=== PATIENT | female | born 1940 | race Caucasian/White ===

== ENCOUNTER 2023-08-18 21:39 | Observation (INO) | payer MEDICARE, SELFPAY ==
--- NOTE | 2023-08-18 22:05 | CT_ITS ---
PROCEDURE INFORMATION: Exam: CT Head Without Contrast Exam date and time: 08/18/2023 10:41 PM Age: 82 years old Clinical indication: Altered mental status/memory loss; Additional info: Acute encephalopathy TECHNIQUE: Imaging protocol: Computed tomography of the head without contrast. Total images: 277 Radiation optimization: All CT scans at this facility use at least one of these dose optimization techniques: automated exposure control; mA and/or kV adjustment per patient size (includes targeted exams where dose is matched to clinical indication); or iterative reconstruction. COMPARISON: No relevant prior studies available. FINDINGS: Brain: No acute intracranial hemorrhage, midline shift, or mass. Mild cortical and cerebellar atrophy. Moderate confluent periventricular and subcortical white matter hypodensity compatible with remote small vessel ischemic change. Paul-white interface and basilar cisterns are preserved. Remote white matter infarct left subinsular cortex. Cerebral ventricles: Mild ventricular prominence compatible degree of central atrophy. Paranasal sinuses: Visualized sinuses are unremarkable. No fluid levels. Mastoid air cells: Visualized mastoid air cells are well aerated. Orbital cavities: Status post bilateral orbital lens replacement. Bones/joints: Osteopenia. Hyperostosis of the frontal calvarium. No skull fracture. Soft tissues: Unremarkable. Vasculature: Moderate to severe calcifications bilateral intracranial internal carotid arteries. IMPRESSION: 1. No acute intracranial process. 2. Moderate chronic intracranial findings.
--- NOTE | 2023-08-18 22:05 | XR_ITS ---
PROCEDURE INFORMATION: Exam: XR Chest Exam date and time: 08/18/2023 11:17 PM Age: 82 years old Clinical indication: Other: Encephalopathy TECHNIQUE: Imaging protocol: Radiologic exam of the chest. Views: 1 view. COMPARISON: No relevant prior studies available. FINDINGS: Lungs: Low lung volumes with elevated right hemidiaphragm and mild bibasilar atelectasis. Central pulmonary vascular enlargement. No consolidation. Pleural spaces: Normal. No pleural effusion. No pneumothorax. Heart/Mediastinum: Normal. No cardiomegaly. Vasculature: Tortuous atherosclerotic thoracic aorta. Bones/joints: Old left clavicle fracture. IMPRESSION: Low lung volumes with elevated right hemidiaphragm and mild bibasilar atelectasis. No consolidation.
[2023-08-18 22:06] VITALS: BP 148/79; PULSE 103; RESP 24; TEMP 38.1; O2SAT 92; BMI 42.9
[2023-08-18 22:10] LABS: Microscopic, Urine URINE MICROSCOPIC (MICROSCOPIC)
[2023-08-18 22:10] LABS: Coronavirus 19, PCR Not Detected (NotDetected); Influenza A, PCR Not Detected (NotDetected); Influenza B, PCR Not Detected (NotDetected)
--- NOTE | 2023-08-18 22:15 | ECG_ITS ---
APPROVED REPORT Exam: Resting ECG HR:100 bpm ECG Measurements Heart Rate 100 AXES OK 144 P 59 QRSd 98 QRS 47 QT 343 T 2 QTc 400 Critical Notification Critical Value: No Conclusion SINUS TACHYCARDIA LOW QRS VOLTAGE IN PRECORDIAL LEADS [QRS DEFLECTION < 1.0 mV IN CHEST LEADS] MINIMAL ST DEPRESSION [0.025+ mV ST DEPRESSION] ABNORMAL RHYTHM ECG Electronically signed by : LEI DUNAWAY, 08/19/2023 01:43:19
[2023-08-18 22:16] LABS: Basophils # 0.1 K/mm3 (0-0.2); Basophils % 0.7 % (0.1-2.0); Eosinophils % 0.2 % (0.1-12.0); Hematocrit 39.1 % (37.0-47.0); Hemoglobin 12.1 g/dL (12.2-16.2); Lymphocytes # 2.3 K/mm3 (0.7-4.5); Mean Corpuscular Hemoglobin 28.7 pg (27.0-31.2); Mean Corpuscular Volume 92.5 fl (81-99); Monocytes # 0.7 K/mm3 (0.1-1.0); Monocytes % 4.5 % (1.7-9.3); Neutrophils # 12.2 K/mm3 (1.8-7.8); Neutrophils % 79.6 % (37.0-80.0); Platelet Count 366 K/mm3 (142-424); Red Blood Count 4.23 M/mm3 (4.20-5.40); White Blood Count 15.3 K/mm3 (4.8-10.8)
[2023-08-18 22:17] LABS: Chloride 102 mmol/L (98-107)
--- NOTE | 2023-08-18 22:17 | PC.NURSE ---
Dr Francis notified of pt triggering for sepsis
[2023-08-18 22:18] LABS: Appearance,Urine CLEAR (Clear); Bilirubin,Urine Negative (Negative); Blood, Urine Negative (Negative); Color,Urine YELLOW (Yellow); Glucose,Urine (UA) Negative (Negative); Ketones,Urine Negative (Negative); Leukocyte Esterase,Urine Negative (Negative); Nitrate,Urine Negative (Negative); PH,Urine 5.5 (5.0-8.5); Protein,Urine TRACE (Negative); Specific Gravity, Urine 1.025 (1.005-1.030); Urobilinogen,Urine 0.2 EU/dl (0.2)
[2023-08-18 22:18] LABS: MANUAL DIFFERENTIAL MANUAL DIFFERENTIAL (MANUAL DIFF); Potassium 4.1 mmoL/L (3.5-5.1); Sodium 137 mmol/L (136-145)
[2023-08-18 22:20] LABS: Alanine Aminotransferase 42 U/L (12-78); Aspartate Amino Transferase 44 U/L (14-36); Blood Urea Nitrogen 16 mg/dl (7-17); Creatinine Clearance Estimated 38 mL/min (50-200); Estimated Glomerular Filt Rate 69 ml/min (>60); GFR (African American) 83 ML/MIN (>60)
[2023-08-18 22:21] VITALS: BP 121/68; PULSE 99; RESP 18; O2SAT 93
[2023-08-18 22:21] LABS: Albumin Level 3.7 g/dl (3.5-5.0); Albumin/Globulin Ratio 1.2 (1.1-1.8); Alkaline Phosphatase 81 U/L (38-126); Anion Gap 7.1 mEq/L (5-15); Bilirubin,Total 0.3 mg/dl (0.2-1.3); Calcium 9.2 mg/dl (8.4-10.2); Carbon Dioxide 32 mmol/L (22.0-30.0); Globulin 3.1 g/dL (1.3-3.2); Glucose 161 mg/dl (74-100); Magnesium 1.9 mg/dl (1.6-2.3); Total Protein,Serum 6.8 g/dl (6.3-8.2)
[2023-08-18] MEDS: CEFTRIAXONE 1 GM 1 GM in 0.9 % SODIUM CHLORIDE 50 ML IV (22:28)
--- NOTE | 2023-08-18 22:28 | PC.NURSE ---
requested records from [facility] from 08/17/23 visit
[2023-08-18] MEDS: ACETAMINOPHEN 1,000MG/100ML VIAL 1000 MG IV (22:29)
[2023-08-18 22:30] VITALS: BP 134/70; PULSE 96; O2SAT 95
--- NOTE | 2023-08-18 22:36 | ECG_ITS ---
APPROVED REPORT Exam: Resting ECG HR:99 bpm ECG Measurements Heart Rate 99 AXES RI 155 P 65 QRSd 93 QRS 64 QT 333 T 5 QTc 389 Critical Notification Critical Value: No Conclusion SINUS RHYTHM NORMAL ECG Electronically signed by : LEI DUNAWAY, 08/19/2023 01:46:47
[2023-08-18 22:37] LABS: Bacteria,Urine Trace /lpf; RBC,Urine Occasional #/hpf (0-3); Squamous Epithelial Cell,Urine Occasional #/hpf (0-5)
[2023-08-18 22:38] LABS: Troponin I < 0.01 ng/ml (0.00-0.034)
[2023-08-18] MEDS: LACTATED RINGERS 1000ML 1,640 ML 820 ML IV (22:40)
[2023-08-18 22:47] LABS: INR 1.43 (0.9-1.1); Prothrombin Time 15.1 seconds (10.1-12.5)
[2023-08-18 22:55] LABS: Lymphocytes % 24 % (10-50); Monocytes % 1 % (2-9); Neutrophils % 75 % (42-76); Total Cells Counted 100
[2023-08-18 22:57] LABS: Platelet Estimate Normal; RBC Morphology Normal
[2023-08-18 23:03] VITALS: BP 108/56; PULSE 90; RESP 18; O2SAT 94
--- NOTE | 2023-08-18 23:03 | CT_ITS ---
PROCEDURE INFORMATION: Exam: CT Abdomen And Pelvis With Contrast Exam date and time: 08/18/2023 11:17 PM Age: 82 years old Clinical indication: Abdominal pain; Generalized; Additional info: Previous uterine cancer status post removal TECHNIQUE: Imaging protocol: Computed tomography of the abdomen and pelvis with contrast. Radiation optimization: All CT scans at this facility use at least one of these dose optimization techniques: automated exposure control; mA and/or kV adjustment per patient size (includes targeted exams where dose is matched to clinical indication); or iterative reconstruction. Contrast material: ISOVUE; Contrast volume: 75 ml; Contrast route: IV; COMPARISON: CR XR CHEST PORTABLE 08/18/2023 11:17 PM FINDINGS: Lungs: Mild bibasilar atelectasis. Liver: Hepatic steatosis with hepatomegaly. No liver lesions. Gallbladder and bile ducts: Multiple small gallstones in the gallbladder. No biliary ductal dilatation. Pancreas: Significant fatty replacement of the pancreas. 2.0 cm cystic lesion in the pancreatic tail. Spleen: Small splenic remnant in the left upper quadrant. Adrenal glands: Normal. No mass. Kidneys and ureters: Normal. No hydronephrosis. Stomach and bowel: Unremarkable. No obstruction. No mucosal thickening. Appendix: No evidence of appendicitis. Intraperitoneal space: Central mesenteric fat stranding. No free fluid or free air. Trace pelvic free fluid. Retroperitoneal space: Surgical clips in the inferior retroperitoneum. Vasculature: [id number] atherosclerotic disease without aneurysm. Lymph nodes: Calcified right inferior hilar lymph node. No adenopathy. Urinary bladder: Unremarkable as visualized. Reproductive: Status post hysterectomy. No adnexal masses. Bones/joints: Multiple old left rib fractures. Bilateral sacral ala sclerosis. Moderate lower lumbar spine facet arthropathy. Slight grade 1 anterolisthesis of L4 over L5. Soft tissues: Anterior inferior abdominal wall scarring. IMPRESSION: 1. Trace pelvic free fluid. 2. Central mesenteric fat stranding could be reactive or represent sclerosing mesenteritis. 3. Hepatic steatosis with hepatomegaly. 4. Cholelithiasis. 5. Bilateral sacral ala sclerosis appears consistent with chronic insufficiency fractures. 6. 2.0 cm cystic lesion in the pancreatic tail. Reimaging every 2 years for 4 years is recommended. (Reference: Timoteo, 2017) REFERENCES: Timoteo TORRES, et al. Management of Incidental Pancreatic Cysts: A White Paper of the ACR Incidental Findings Committee. J Am Lj Radiol. 2017;14(7):911-923.
[2023-08-18] MEDS: SODIUM CHLORIDE 0.9% 10ML SYR (RAD ONLY) 10 ML IV (23:27)
[2023-08-18] MEDS: IOPAMIDOL-370 (76%);100ML BOTTLE 75 ML IV (23:27)
[2023-08-18] MEDS: VANCOMYCIN CONSULT REQUEST 1 EACH NOTAPPLIC (23:35)
[2023-08-18 23:44] VITALS: BP 128/68; PULSE 96; RESP 18; O2SAT 93
[2023-08-19] VITALS (7 sets, daily range): BP systolic 91–125; BP diastolic 50–65; PULSE 84–96; RESP 17–22; TEMP 36.7–36.9; O2SAT 90–96; BMI 42.7
[2023-08-19] MEDS: VANCOMYCIN HCL 2,000 MG in 0.9 % SODIUM CHLORIDE 500 ML 166 MG IV (00:01)
--- NOTE | 2023-08-19 00:04 | ED_ITS ---
Discharge Plan Disposition Patient Disposition: Admitted Condition: Fair Clinical Impressions Clinical Impression: Sepsis, Decreased functional mobility, Decreased oral intake Discharge ED Provider: Aguila Francis General Adult HPI <Aguila Francis MD - Last Filed: 08/19/23 00:20> General Chief complaint: Weakness Stated complaint: lethargic, Time Seen by Provider: 08/18/23 21:40 Mode of Arrival: Wheelchair Source of Information: Parent(s) Limitations: Altered Mental Status Description of Symptoms (Recalled from ER Triage Doc. by RN): Pt to ED with family who states that pt has been weak, lethargic, and more confused since last night. They also report pt has had decreased u/o and has not had anything by mouth including medication since last night. Family reports pt is usually ambulatory but has needed maximum assistance to get around as well. Pt has vomited twice since last night. Family reports they believe pt is in pain somewhere but can not tell them where, due to AMS. upon assessment pt does not appear to be in pain, abd is soft and pt has no signs of pain with palpation. Pt was seen at [place] ED today and they told her her urine was clean and electrolytes were normal, prescribed [id number] and DC. Pt has hx of spleenectomy. Pt febrile at 100.5 upon arrival. Pt is diabetic as well. FSBS -149 Pt is alert and oriented to name only. 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 History is largely obtained by family at bedside. Patient is typically a 1 person assist with a walker. However over the last 24 hours has developed fever, decreased p.o. intake, decreased urine output, decreased conversation from baseline. They went to outside hospital yesterday where they were told that their workup was reassuring and they were discharged home. This morning patient was a 4 person max assist and is unable to ambulate on her own. She is not complaining of abdominal pain or chest pain. Due to persistent symptoms they present here for continued evaluation given her oral aversion and fever. Related Data Home Medications Medication Instructions Recorded Confirmed alendronate 70 mg tablet 70 mg PO DAILY 08/18/23 08/18/23 cholecalciferol (vitamin D3) 125 125 mcg PO DAILY 08/18/23 08/18/23 mcg (5,000 unit) tablet (Vitamin D3) duloxetine 60 mg capsule,delayed 60 mg PO DAILY 08/18/23 08/18/23 release fluticasone fur. 100 mcg-umeclid 1 inh inhalation HS 08/18/23 08/18/23 62.5 mcg-vilant 25 mcg inhalat.powder (Trelegy Ellipta) furosemide 40 mg tablet 40 mg PO DAILY 08/18/23 08/18/23 gabapentin 800 mg tablet 800 mg PO TID 08/18/23 08/18/23 metformin 500 mg tablet 500 mg PO BID 08/18/23 08/18/23 multivitamin 1 tab PO DAILY 08/18/23 08/18/23 ondansetron 4 mg disintegrating 4 mg PO NEEDED PRN Nausea 08/18/23 08/18/23 tablet oxybutynin chloride 5 mg tablet 5 mg PO BID 08/18/23 08/18/23 pantoprazole 40 mg tablet,delayed 40 mg PO DAILY 08/18/23 08/18/23 release potassium chloride 10 mEq 10 meq PO DAILY 08/18/23 08/18/23 tablet,extended release warfarin 5 mg tablet 5 mg PO DAILY 08/18/23 08/18/23 Allergies Allergy/AdvReac Type Severity Reaction Status Date / Time No Known Allergies Allergy Verified 08/18/23 22:17 [facility] <Aguila Francis MD - Last Filed: 08/19/23 00:20> [facility] Disclaimer: The information contained in this section may have been updated after the patient was seen, as this information can be updated by other users. Social History (Updated 08/19/23 @ 00:13 by Aguila Francis MD) Smoking Status: Never smoker alcohol intake: never current occupational status: other Travel in the last 8 weeks: None <Aguila Francis MD - Last Filed: 08/19/23 00:20> ROS Obtained: Yes Systems reviewed as appropriate & no additional complaints except as documented Physical Exam <Agulia Francis MD - Last Filed: 08/19/23 00:20> General General appearance: alert and in no apparent distress Head Head exam: atraumatic and normocephalic Eye Eye exam: Present PERRL and EOMI ENT ENT exam: Present mucous membranes moist Neck Neck exam: Present normal inspection Chest Chest inspection: Present normal inspection and symmetric chest wall rise Respiratory Respiratory exam: Present normal lung sounds bilaterally; Absent respiratory distress Cardiovascular Cardiovascular exam: Present normal rhythm and tachycardia Abdominal Exam Abdominal exam: Present soft; Absent tenderness Extremities Exam Extremities exam: Present normal inspection Neurological Exam Neurological exam: Present alert Psychiatric Psychiatric exam: Present normal affect Skin Skin exam: Present warm and dry Medical Decision Making <Aguila Francis MD - Last Filed: 08/19/23 00:20> Per Inquiry Pt receiving controlled substance: No Vital Signs: 08/18/23 22:06 08/18/23 22:21 08/18/23 22:30 Temperature 100.5 F H Temperature Source Rectal Pulse Rate 99 H 96 H Pulse Rate [Left Radial] 103 H Respiratory Rate 24 18 Blood Pressure 121/68 134/70 Blood Pressure [Right Arm] 148/79 H Blood Pressure Mean 81 82 Blood Pressure Mean [Right Arm] 102 Blood Pressure Source Blood Pressure Source [Right Arm] Automatic Cuff Blood Pressure Position Blood Pressure Position [Right Arm] Supine 02 Sat by Pulse Oximetry 92 L 93 L 95 Oxygen Delivery Method Room Air Room Air Room Air 08/18/23 23:03 08/18/23 23:44 08/19/23 00:00 Temperature Temperature Source Pulse Rate 90 96 H 96 H Pulse Rate [Left Radial] Respiratory Rate 18 18 20 Blood Pressure 108/56 L 128/68 119/65 Blood Pressure [Right Arm] Blood Pressure Mean 73 86 84 Blood Pressure Mean [Right Arm] Blood Pressure Source Blood Pressure Source [Right Arm] Blood Pressure Position Blood Pressure Position [Right Arm] 02 Sat by Pulse Oximetry 94 L 93 L 95 Oxygen Delivery Method 08/19/23 00:29 Temperature 98.3 F Temperature Source Oral Pulse Rate 88 Pulse Rate [Left Radial] Respiratory Rate 22 Blood Pressure 119/65 Blood Pressure [Right Arm] Blood Pressure Mean Blood Pressure Mean [Right Arm] Blood Pressure Source Automatic Cuff Blood Pressure Source [Right Arm] Blood Pressure Position Sitting Blood Pressure Position [Right Arm] 02 Sat by Pulse Oximetry Oxygen Delivery Method Room Air Lab Data Lab Results 08/18/23 21:56: SARS-CoV-2 (PCR) Not detected, Influenza A Untype (PCR) Not detected, Influenza Type B (PCR) Not detected 08/18/23 22:03: Urine Color Yellow, Urine Appearance Clear, Urine pH 5.5, Ur Specific Early 1.025, Urine Protein Trace, Urine Glucose (UA) Negative, Urine Ketones Negative, Urine Blood Negative, Urine Nitrate Negative, Urine Bilirubin Negative, Urine Urobilinogen 0.2, Ur Leukocyte Esterase Negative, Urine RBC Occasional, Urine WBC None, Ur Squamous Epith Cells Occasional, Urine Bacteria Trace 08/18/23 22:08: WBC 15.3 H, RBC 4.23, Hgb 12.1 L, Hct 39.1, MCV 92.5, MCH 28.7, MCHC 31.0 L, RDW 17.0, Plt Count 366, MPV 8.0, Neut % (Auto) 79.6, Lymph % (Auto) 15.0, Kerr % (Auto) 4.5, Eos % (Auto) 0.2, Baso % (Auto) 0.7, Neut # (Auto) 12.2 H, Lymph # (Auto) 2.3, Kerr # (Auto) 0.7, Eos # (Auto) 0.0, Baso # (Auto) 0.1, Total Counted 100, Neutrophils % (Manual) 75, Lymphocytes % (Manual) 24, Monocytes % (Manual) 1 L, Platelet Estimate Normal, RBC Morphology Normal, P T 15.1 H, INR 1.43 H, Sodium 137, Potassium 4.1, Chloride 102, Carbon Dioxide 32 H, Anion Gap 7.1, BUN 16, Creatinine 0.80, Estimated Creat Clear 38, Estimated GFR 69, Est GFR ( Amer) 83, Glucose 161 H, Lactate 2.0, Calcium 9.2, Magnesium 1.9, Total Bilirubin 0.3, AST 44 H, ALT 42, Alkaline Phosphatase 81, Troponin I < 0.01, Total Protein 6.8, Albumin 3.7, Globulin 3.1, Albumin/Globulin Ratio 1.2 08/19/23 00:25: Lactate 1.5 08/18/23 22:08 08/18/23 22:08 Orders (Tests/Meds): ED MEDICATIONS Generic Name Dose Route Start Last Admin Trade Name Freq PRN Reason Stop Dose Admin Acetaminophen 650 mg 08/19/23 00:04 Acetaminophen 325mg Tab PO 09/18/23 00:03 Q4HP PRN Fever or Mild Pain (1-3) Enoxaparin Sodium 40 mg 08/19/23 09:00 Enoxaparin 40mg/0.4ml Syringe SQ 09/18/23 08:59 DAILY [facility] Ceftriaxone Sodium 1 gm/ 50 mls @ 100 mls/hr 08/18/23 22:30 08/18/23 22:28 Sodium Chloride IV 08/28/23 22:29 100 mls/hr Q24H YURIY Administration Vancomycin HCl 2,000 mg/ 500 mls @ 166 mls/hr 08/19/23 00:00 08/19/23 00:01 Sodium Chloride IV 08/19/23 03:00 166 mls/hr ONCE ONE Administration Sodium Chloride 1,000 mls @ 75 mls/hr 08/19/23 00:15 08/19/23 00:54 Sod Chlor 0.9% 1000ml Bag IV 09/18/23 00:14 75 mls/hr .[id number] YURIY Administration Miscellaneous 1 each 08/18/23 23:45 08/18/23 23:35 Vancomycin Consult Request NOTAPPLIC 09/17/23 23:44 1 each CONSULT PHARMACY [facility] Administration Miscellaneous 1 each 08/19/23 00:15 08/19/23 00:33 Vancomycin Consult Request NOTAPPLIC 09/18/23 00:14 Not Given CONSULT PHARMACY [facility] Morphine Sulfate 2 mg 08/19/23 00:04 Morphine 2mg/Ml Syringe IV 09/18/23 00:03 Q2HP PRN Severe Pain (7-10) Ondansetron HCl 4 mg 08/19/23 00:04 Ondansetron 4mg/2ml Vial IV 09/18/23 00:03 Q8HP PRN Nausea Pantoprazole Sodium 40 mg 08/19/23 09:00 Pantoprazole 40mg Tablet PO 09/18/23 08:59 DAILY [facility] Discontinued Medications Generic Name Dose Route Start Last Admin Trade Name Freq PRN Reason Stop Dose Admin Acetaminophen 1,000 mg 08/18/23 22:07 08/18/23 22:29 Acetaminophen 1,000mg/100ml Vial IV 08/18/23 22:08 1,000 mg ONCE ONE Administration Lactated Ringer's 1,000 mls @ 999 mls/hr 08/18/23 22:05 08/18/23 22:49 Lactated Ringer's 1000 Ml Bag IV 08/18/23 23:05 Not Given .Q1H1M ONE Lactated Ringer's 1,640 mls @ 820 mls/hr 08/18/23 22:20 08/18/23 22:40 Lactated Ringer's 1000 Ml Bag 30 ml/kg infuse over 2 hr (1640 ml) 08/19/23 00:19 820 mls/hr IV Administration .Q2H ONE Iopamidol 75 ml 08/18/23 23:25 08/18/23 23:27 Iopamidol-370 (76%);100ml Bottle IV 08/18/23 23:26 75 ml ONCE ONE Administration Sodium Chloride 10 ml 08/18/23 23:25 08/18/23 23:27 Sodium Chloride 0.9% 10ml Syr (Rad Only) IV 08/18/23 23:26 10 ml ONCE ONE Administration ORDERS Category Date Time Status CT abdomen pelvis w con Stat Cat Scan 08/18/23 23:[address] head/brain wo con Stat Cat Scan 08/18/23 22:05 Completed CXR --portable [XR chest portable] Stat Exams 08/18/23 22:05 Completed CBC w/Auto Diff [Complete Blood Count Auto Diff] Stat Lab 08/18/23 22:08 Completed CMP [Comprehensive Metabolic Panel] Stat Lab 08/18/23 22:08 Completed Complete Blood Count Auto Diff AMLAB Lab 08/19/23 06:00 Ordered Comprehensive Metabolic Panel AMLAB Lab 08/19/23 06:00 Ordered Lactic Acid Stat Lab 08/18/23 22:08 Completed Lactic Acid Stat Lab 08/19/23 00:25 Completed MG [Magnesium] Stat Lab 08/18/23 22:08 Completed Magnesium AMLAB Lab 08/19/23 06:00 Ordered PT INR [Prothrombin Time INR] Stat Lab 08/18/23 22:08 Completed Rapid PCR Covid and Flu A/B Stat Lab 08/18/23 21:56 Completed Trop I [Troponin I] Stat Lab 08/18/23 22:08 Completed Troponin I Q3H Lab 08/19/23 00:25 Received Troponin I Q3H Lab 08/19/23 04:15 Ordered UA [Urinalysis and Microscopic] Stat Lab 08/18/23 22:03 Completed Blood Culture Stat Micro 08/18/23 22:08 Received ECG Data Tracing #1: Independently interpreted by me, rate is 100, rhythm is regular, axis is normal, no ST elevation in anatomical contiguous leads, QTc 400. Tracing #2: Independently interpreted by me, rate is 99, rhythm is regular, axis is normal, no ST elevation in anatomical contiguous leads, QTc 389. Tissue Perfus/Sepsis Re-Eval Sepsis Re-Evaluation Performed: Yes Date Performed: 08/19/23 Time Performed: 00:09 HEART Score History (anamnesis): Slightly suspicious ECG: Normal Age: >65 years Risk factors: 1-2 risk factors Troponin: </= normal limit HEART Score: 3 Medical Decision Narrative: In summary patient is a 82-year-old female past medical history described above presents emergency department for evaluation of fever, functional decline, decreased p.o. intake. Patient is hemodynamically stable and nontoxic-appearing upon arrival, tachycardic, febrile, tachypneic. Differential diagnosis includes spontaneous bacteremia secondary to asplenia, viral syndrome with resultant functional decline in the setting of known dementia, urinary tract infection, intracranial hemorrhage, among others. Patient does not have a cough and is clear to auscultation in all lung darnell making respiratory infection less likely. Broad workup will be conducted with hematologic labs, chest x-ray, EKG, noncontrasted CT scan of the head. Given history of previous malignancy although remote CT of the abdomen pelvis IV contrast will be obtained. Urinalysis obtained. Given asplenia ceftriaxone will be empirically given given that patient is SIRS positive upon my initial evaluation at underlying infection is likely. Patient does not have nuchal rigidity and does not have significant confusion from baseline, although encephalitis or meningitis is possible it is less likely and LP cannot be performed due to anticoagulated status. Sepsis bolus fluids will be given. Initial workup reviewed by me, hematologic labs remarkable for leukocytosis 15.3, remainder of hematologic labs are nonactionable. Urinalysis pending. Viral swab negative. CT imaging and repeat evaluation pending at time of transfer of care to the oncoming physician, Dr. Donahue. <Ronda Donahue MD - Last Filed: 08/19/23 01:04> Vital Signs: 08/18/23 22:06 08/18/23 22:21 08/18/23 22:30 Temperature 100.5 F H Temperature Source Rectal Pulse Rate 99 H 96 H Pulse Rate [Left Radial] 103 H Respiratory Rate 24 18 Blood Pressure 121/68 134/70 Blood Pressure [Right Arm] 148/79 H Blood Pressure Mean 81 82 Blood Pressure Mean [Right Arm] 102 Blood Pressure Source Blood Pressure Source [Right Arm] Automatic Cuff Blood Pressure Position Blood Pressure Position [Right Arm] Supine 02 Sat by Pulse Oximetry 92 L 93 L 95 Oxygen Delivery Method Room Air Room Air Room Air 08/18/23 23:03 08/18/23 23:44 08/19/23 00:00 Temperature Temperature Source Pulse Rate 90 96 H 96 H Pulse Rate [Left Radial] Respiratory Rate 18 18 20 Blood Pressure 108/56 L 128/68 119/65 Blood Pressure [Right Arm] Blood Pressure Mean 73 86 84 Blood Pressure Mean [Right Arm] Blood Pressure Source Blood Pressure Source [Right Arm] Blood Pressure Position Blood Pressure Position [Right Arm] 02 Sat by Pulse Oximetry 94 L 93 L 95 Oxygen Delivery Method 08/19/23 00:29 Temperature 98.3 F Temperature Source Oral Pulse Rate 88 Pulse Rate [Left Radial] Respiratory Rate 22 Blood Pressure 119/65 Blood Pressure [Right Arm] Blood Pressure Mean Blood Pressure Mean [Right Arm] Blood Pressure Source Automatic Cuff Blood Pressure Source [Right Arm] Blood Pressure Position Sitting Blood Pressure Position [Right Arm] 02 Sat by Pulse Oximetry Oxygen Delivery Method Room Air Lab Data Lab Results 08/18/23 21:56: SARS-CoV-2 (PCR) Not detected, Influenza A Untype (PCR) Not detected, Influenza Type B (PCR) Not detected 08/18/23 22:03: Urine Color Yellow, Urine Appearance Clear, Urine pH 5.5, Ur Specific Early 1.025, Urine Protein Trace, Urine Glucose (UA) Negative, Urine Ketones Negative, Urine Blood Negative, Urine Nitrate Negative, Urine Bilirubin Negative, Urine Urobilinogen 0.2, Ur Leukocyte Esterase Negative, Urine RBC Occasional, Urine WBC None, Ur Squamous Epith Cells Occasional, Urine Bacteria Trace 08/18/23 22:08: WBC 15.3 H, RBC 4.23, Hgb 12.1 L, Hct 39.1, MCV 92.5, MCH 28.7, MCHC 31.0 L, RDW 17.0, Plt Count 366, MPV 8.0, Neut % (Auto) 79.6, Lymph % (Auto) 15.0, Kerr % (Auto) 4.5, Eos % (Auto) 0.2, Baso % (Auto) 0.7, Neut # (Auto) 12.2 H, Lymph # (Auto) 2.3, Kerr # (Auto) 0.7, Eos # (Auto) 0.0, Baso # (Auto) 0.1, Total Counted 100, Neutrophils % (Manual) 75, Lymphocytes % (Manual) 24, Monocytes % (Manual) 1 L, Platelet Estimate Normal, RBC Morphology Normal, P T 15.1 H, INR 1.43 H, Sodium 137, Potassium 4.1, Chloride 102, Carbon Dioxide 32 H, Anion Gap 7.1, BUN 16, Creatinine 0.80, Estimated Creat Clear 38, Estimated GFR 69, Est GFR ( Amer) 83, Glucose 161 H, Lactate 2.0, Calcium 9.2, Magnesium 1.9, Total Bilirubin 0.3, AST 44 H, ALT 42, Alkaline Phosphatase 81, Troponin I < 0.01, Total Protein 6.8, Albumin 3.7, Globulin 3.1, Albumin/Globulin Ratio 1.2 08/19/23 00:25: Lactate 1.5 Orders (Tests/Meds): ED MEDICATIONS Generic Name Dose Route Start Last Admin Trade Name Freq PRN Reason Stop Dose Admin Acetaminophen 650 mg 08/19/23 00:04 Acetaminophen 325mg Tab PO 09/18/23 00:03 Q4HP PRN Fever or Mild Pain (1-3) Enoxaparin Sodium 40 mg 08/19/23 09:00 Enoxaparin 40mg/0.4ml Syringe SQ 09/18/23 08:59 DAILY [facility] Ceftriaxone Sodium 1 gm/ 50 mls @ 100 mls/hr 08/18/23 22:30 08/18/23 22:28 Sodium Chloride IV 08/28/23 22:29 100 mls/hr Q24H YURIY Administration Vancomycin HCl 2,000 mg/ 500 mls @ 166 mls/hr 08/19/23 00:00 08/19/23 00:01 Sodium Chloride IV 08/19/23 03:00 166 mls/hr ONCE ONE Administration Sodium Chloride 1,000 mls @ 75 mls/hr 08/19/23 00:15 08/19/23 00:54 Sod Chlor 0.9% 1000ml Bag IV 09/18/23 00:14 75 mls/hr .[id number] YURIY Administration Miscellaneous 1 each 08/18/23 23:45 08/18/23 23:35 Vancomycin Consult Request NOTAPPLIC 09/17/23 23:44 1 each CONSULT PHARMACY [facility] Administration Miscellaneous 1 each 08/19/23 00:15 08/19/23 00:33 Vancomycin Consult Request NOTAPPLIC 09/18/23 00:14 Not Given CONSULT PHARMACY [facility] Morphine Sulfate 2 mg 08/19/23 00:04 Morphine 2mg/Ml Syringe IV 09/18/23 00:03 Q2HP PRN Severe Pain (7-10) Ondansetron HCl 4 mg 08/19/23 00:04 Ondansetron 4mg/2ml Vial IV 09/18/23 00:03 Q8HP PRN Nausea Pantoprazole Sodium 40 mg 08/19/23 09:00 Pantoprazole 40mg Tablet PO 09/18/23 08:59 DAILY [facility] Discontinued Medications Generic Name Dose Route Start Last Admin Trade Name Freq PRN Reason Stop Dose Admin Acetaminophen 1,000 mg 08/18/23 22:07 08/18/23 22:29 Acetaminophen 1,000mg/100ml Vial IV 08/18/23 22:08 1,000 mg ONCE ONE Administration Lactated Ringer's 1,000 mls @ 999 mls/hr 08/18/23 22:05 08/18/23 22:49 Lactated Ringer's 1000 Ml Bag IV 08/18/23 23:05 Not Given .Q1H1M ONE Lactated Ringer's 1,640 mls @ 820 mls/hr 08/18/23 22:20 08/18/23 22:40 Lactated Ringer's 1000 Ml Bag 30 ml/kg infuse over 2 hr (1640 ml) 08/19/23 00:19 820 mls/hr IV Administration .Q2H ONE Iopamidol 75 ml 08/18/23 23:25 08/18/23 23:27 Iopamidol-370 (76%);100ml Bottle IV 08/18/23 23:26 75 ml ONCE ONE Administration Sodium Chloride 10 ml 08/18/23 23:25 08/18/23 23:27 Sodium Chloride 0.9% 10ml Syr (Rad Only) IV 08/18/23 23:26 10 ml ONCE ONE Administration ORDERS Category Date Time Status CT abdomen pelvis w con Stat Cat Scan 08/18/23 23:[address] head/brain wo con Stat Cat Scan 08/18/23 22:05 Completed CXR --portable [XR chest portable] Stat Exams 08/18/23 22:05 Completed CBC w/Auto Diff [Complete Blood Count Auto Diff] Stat Lab 08/18/23 22:08 Completed CMP [Comprehensive Metabolic Panel] Stat Lab 08/18/23 22:08 Completed Complete Blood Count Auto Diff AMLAB Lab 08/19/23 06:00 Ordered Comprehensive Metabolic Panel AMLAB Lab 08/19/23 06:00 Ordered Lactic Acid Stat Lab 08/18/23 22:08 Completed Lactic Acid Stat Lab 08/19/23 00:25 Completed MG [Magnesium] Stat Lab 08/18/23 22:08 Completed Magnesium AMLAB Lab 08/19/23 06:00 Ordered PT INR [Prothrombin Time INR] Stat Lab 08/18/23 22:08 Completed Rapid PCR Covid and Flu A/B Stat Lab 08/18/23 21:56 Completed Trop I [Troponin I] Stat Lab 08/18/23 22:08 Completed Troponin I Q3H Lab 08/19/23 00:25 Received Troponin I Q3H Lab 08/19/23 04:15 Ordered UA [Urinalysis and Microscopic] Stat Lab 08/18/23 22:03 Completed Blood Culture Stat Micro 08/18/23 22:08 Received HEART Score HEART Score: 3 Medical Decision Narrative: In summary patient is a 82-year-old female past medical history described above presents emergency department for evaluation of fever, functional decline, decreased p.o. intake. Patient is hemodynamically stable and nontoxic-appearing upon arrival, tachycardic, febrile, tachypneic. Differential diagnosis includes spontaneous bacteremia secondary to asplenia, viral syndrome with resultant functional decline in the setting of known dementia, urinary tract infection, intracranial hemorrhage, among others. Patient does not have a cough and is clear to auscultation in all lung darnell making respiratory infection less likely. Broad workup will be conducted with hematologic labs, chest x-ray, EKG, noncontrasted CT scan of the head. Given history of previous malignancy although remote CT of the abdomen pelvis IV contrast will be obtained. Urinalysis obtained. Given asplenia ceftriaxone will be empirically given given that patient is SIRS positive upon my initial evaluation at underlying infection is likely. Patient does not have nuchal rigidity and does not have significant confusion from baseline, although encephalitis or meningitis is possible it is less likely and LP cannot be performed due to anticoagulated status. Sepsis bolus fluids will be given. Initial workup reviewed by me, hematologic labs remarkable for leukocytosis 15.3, remainder of hematologic labs are nonactionable. Urinalysis pending. Viral swab negative. CT imaging and repeat evaluation pending at time of transfer of care to the oncoming physician, Dr. Donahue. Donahue: Upon my assumption of care patient is on CPAP since she normally sleeps with one and is resting comfortably. I reviewed the workup, assessment, and plan performed by the primary provider and agree with his workup. I reviewed outside facility labs performed at [facility] which demonstrated a WBC of 14.5 around noon on 08/17 so her WBC has increased slightly. Patient did not have findings of urinary tract infection, no obvious pneumonia, no findings of infection in the abdomen. CT abdomen pelvis was personally interpreted and I do not appreciate any mass, bowel obstruction, abscess, or other acute surgical abnormality. There is a small lesion in the tail of the pancreas. See radiology read for further comments. Vancomycin was added to patient's broad-spectrum antibiotics given concern for possible spontaneous bacteremia in the setting of asplenia. Blood cultures are pending. With patient's encephalopathy, dramatic functional decline, and concern for sepsis, she requires admission. Family is amenable to this plan. I discussed this case with the hospitalist service and patient has been accepted for admission. Critical Care <Aguila Francis MD - Last Filed: 08/19/23 00:20> Critical Care Time Critical Care Time: No
--- NOTE | 2023-08-19 00:06 | EXP.HP ---
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 History is largely obtained by family at bedside. Patient is typically a 1 person assist with a walker. However over the last 24 hours has developed fever, decreased p.o. intake, decreased urine output, decreased conversation from baseline. They went to outside hospital yesterday where they were told that their workup was reassuring and they were discharged home. This morning patient was a 4 person max assist and is unable to ambulate on her own. She is not complaining of abdominal pain or chest pain. Due to persistent symptoms they present here for continued evaluation given her oral aversion and fever. Admitted for further work up and treatment [facility] Disclaimer: The information contained in this section may have been updated after the patient was seen, as this information can be updated by other users. Medical History (Updated 08/19/23 @ 07:01 by Osman Virk APRN) Cataract History of cataract Diabetes mellitus, type 2 History of gastroesophageal reflux (GERD) Osteoarthritis Alzheimer disease History of COVID-19 Sleep apnea Urinary tract infection Urinary incontinence Edema Cervical cancer Skin cancer Asthma Surgical History (Updated 08/19/23 @ 02:07 by Ronel Wood RN) History of appendectomy History of hysterectomy Family History (Updated 08/19/23 @ 01:37 by Ronel Wood RN) Other Family history of diabetes mellitus type II Family history of hypertension Family history of myocardial infarction Social History (Updated 08/19/23 @ 01:39 by Ronel Wood RN) Smoking Status: Never smoker alcohol intake: never current occupational status: retired and other Travel in the last 8 weeks: None Review of Systems Review of Systems Review of systems:: unable to obtain Meds Home Medications and Allergies Home Medications Medication Instructions Recorded Confirmed Type alendronate 70 mg tablet 70 mg PO DAILY 08/18/23 08/18/23 History cholecalciferol (vitamin D3) 125 125 mcg PO DAILY 08/18/23 08/18/23 History mcg (5,000 unit) tablet (Vitamin D3) duloxetine 60 mg capsule,delayed 60 mg PO DAILY 08/18/23 08/18/23 History release fluticasone fur. 100 mcg-umeclid 1 inh inhalation HS 08/18/23 08/18/23 History 62.5 mcg-vilant 25 mcg inhalat.powder (Trelegy Ellipta) furosemide 40 mg tablet 40 mg PO DAILY 08/18/23 08/18/23 History gabapentin 800 mg tablet 800 mg PO TID 08/18/23 08/18/23 History metformin 500 mg tablet 500 mg PO BID 08/18/23 08/18/23 History multivitamin 1 tab PO DAILY 08/18/23 08/18/23 History ondansetron 4 mg disintegrating 4 mg PO NEEDED PRN Nausea 08/18/23 08/18/23 History tablet oxybutynin chloride 5 mg tablet 5 mg PO BID 08/18/23 08/18/23 History pantoprazole 40 mg tablet,delayed 40 mg PO DAILY 08/18/23 08/18/23 History release potassium chloride 10 mEq 10 meq PO DAILY 08/18/23 08/18/23 History tablet,extended release warfarin 5 mg tablet 5 mg PO DAILY 08/18/23 08/18/23 History New Prescriptions to Start Prescriptions: Allergies Allergy/AdvReac Type Severity Reaction Status Date / Time No Known Allergies Allergy Verified 08/18/23 22:17 Exam Data for Last 24 hours Vital signs and Labs for Last 24 Hours: Temp Pulse Resp BP Pulse Ox O2 Del Method 100.5 F H 96 H 18 134/70 95 Room Air 08/18/23 22:06 08/18/23 22:30 08/18/23 22:21 08/18/23 22:30 08/18/23 22:30 08/18/23 22:30 Laboratory Results - last 24 hr 08/18/23 21:56: SARS-CoV-2 (PCR) Not detected, Influenza A Untype (PCR) Not detected, Influenza Type B (PCR) Not detected 08/18/23 22:03: Urine Color Yellow, Urine Appearance Clear, Urine pH 5.5, Ur Specific [place] 1.025, Urine Protein Trace, Urine Glucose (UA) Negative, Urine Ketones Negative, Urine Blood Negative, Urine Nitrate Negative, Urine Bilirubin Negative, Urine Urobilinogen 0.2, Ur Leukocyte Esterase Negative, Urine RBC Occasional, Urine WBC None, Ur Squamous Epith Cells Occasional, Urine Bacteria Trace 08/18/23 22:08: WBC 15.3 H, RBC 4.23, Hgb 12.1 L, Hct 39.1, MCV 92.5, MCH 28.7, MCHC 31.0 L, RDW 17.0, Plt Count 366, MPV 8.0, Neut % (Auto) 79.6, Lymph % (Auto) 15.0, [place] % (Auto) 4.5, Eos % (Auto) 0.2, Baso % (Auto) 0.7, Neut # (Auto) 12.2 H, Lymph # (Auto) 2.3, [place] # (Auto) 0.7, Eos # (Auto) 0.0, Baso # (Auto) 0.1, Total Counted 100, Neutrophils % (Manual) 75, Lymphocytes % (Manual) 24, Monocytes % (Manual) 1 L, Platelet Estimate Normal, RBC Morphology Normal, PT 15.1 H, INR 1.43 H, Sodium 137, Potassium 4.1, Chloride 102, Carbon Dioxide 32 H, Anion Gap 7.1, BUN 16, Creatinine 0.80, Estimated Creat Clear 38, Estimated GFR 69, Est GFR ( Amer) 83, Glucose 161 H, Lactate 2.0, Calcium 9.2, Magnesium 1.9, Total Bilirubin 0.3, AST 44 H, ALT 42, Alkaline Phosphatase 81, Troponin I < 0.01, Total Protein 6.8, Albumin 3.7, Globulin 3.1, Albumin/Globulin Ratio 1.2 I & O for Last 24 hours: Intake & Output 08/16/23 08/17/23 08/18/23 08/19/23 23:59 23:59 23:59 23:59 Weight 113.398 kg Constitutional Constitutional: no acute distress and morbidly obese *Routine HEENT Exam Head: Present normocephalic Eye: Present EOMI and PERRL ENT: Present mucous membranes moist *Routine Neck Exam Neck: Present supple; Absent lymphadenopathy *Routine Respiratory Exam Respiratory: Present CTA bilaterally *Routine Cardiovascular Exam Cardiovascular: Present RRR *Routine Abdominal Exam Abdominal: Present soft and normoactive bowel sounds; Absent tenderness *Routine Rectal Exam Rectal:: deferred *Routine Genitalia Exam Genitalia:: deferred *Routine Extremities Exam Extremities: Absent cyanosis, clubbing or edema *Routine Skin Exam Skin: Present warm; Absent rash *Routine Neurological Exam Neurological: Present alert and moving all extremities; Absent oriented X3 Routine Psychiatric Exam Psychiatric: Present unable to assess H&P: Result Imaging and Cardiology EKG: Status: image reviewed by me, Preliminary report and final report CT scan - abdomen: Status: image reviewed by me, Preliminary report and final report CT scan - head: Status: image reviewed by me, Preliminary report and final report Chest x-ray: Status: image reviewed by me, Preliminary report and final report Assessment and Plan *Assessment and plan (1) Decreased functional mobility: Status: Acute Category: Medical Code(s): R26.89 - Other abnormalities of gait and mobility (2) Decreased oral intake: Status: Acute Category: Medical Code(s): R63.8 - Other symptoms and signs concerning food and fluid intake (3) Leukocytosis: Status: Acute Qualifiers: Leukocytosis type: unspecified Qualified Code(s): D72.829 - Elevated white blood cell count, unspecified Category: Medical Code(s): D72.829 - Elevated white blood cell count, unspecified (4) Cholelithiases: Status: Acute Qualifiers: Biliary obstruction: without biliary obstruction Cholecystitis presence: without cholecystitis Cholelithiasis location: gallbladder Qualified Code(s): K80.20 - Calculus of gallbladder without cholecystitis without obstruction Category: Medical Code(s): K80.20 - Calculus of gallbladder without cholecystitis without obstruction (5) Pancreatic cyst: Status: Acute Category: Medical Code(s): K86.2 - Cyst of pancreas (6) Diabetes mellitus, type 2: Status: Acute Qualifiers: Diabetes mellitus complication status: with other specified complication 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: without group home use Qualified Code(s): E11.69 - Type 2 diabetes mellitus with other specified complication Category: Medical Code(s): E11.9 - Type 2 diabetes mellitus without complications (7) Alzheimer disease: Status: Acute Category: Medical Code(s): G30.9 - Alzheimer's disease, unspecified; F02.80 - Dementia in other diseases classified elsewhere, unspecified severity, without behavioral disturbance, psychotic disturbance, mood disturbance, and anxiety (8) Unable to care for self: Status: Acute Category: Medical Code(s): Z78.9 - Other specified health status Plan 82-year-old female with PMHx of uterine cancer status post hysterectomy and chemo-radiation over a decade ago, previous provoked DVT on warfarin, dementia, [id number] diabetes, GERD, 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 on arrival patient found to have leukocytosis, wish is trending up from previous visit to another near by hospital. CT of abdomen concerning for cholelithiasis, and pancreatic cyst, CXR negative. UA is clear. Culture pending. Discussed with ED for admission. Gerneralized weakness. Decreased functional ability To rule out sepsis and bacteremia: Started on vancomycin and Zosyn Blood culture pending Urinary culture pending Monitor lab Watch for electrolyte imbalance -Cholelithiasis without obstruction Pancreatic cyst: Patient referred previous history of stomach upset with nausea Continue monitor Obtain lipase History of diabetes. Alzheimer's Condition review resume home medication Unable to care for herself PT OT consulted for recommendation Patient on warfarin. Protonix for GI protection Patient has a living will. DNR/DNI Plan discussed with extensively with family. Attending attestation Patient was seen and evaluated at the bedside myself, agree with SUSY note. lipase 16 INR 1.46 await PT/OT eval
--- NOTE | 2023-08-19 00:16 | PC.NURSE ---
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 dx: sepsis, decr mobility. admit to hospitalist
--- NOTE | 2023-08-19 00:27 | PC.NURSE ---
report to critical [facility] hospital.
--- NOTE | 2023-08-19 00:29 | PC.NURSE ---
Report received by SALAS Barrios
[2023-08-19 00:38] LABS: Lactic Acid 1.5 mmol/L (0.7-2.1)
--- NOTE | 2023-08-19 00:43 | PC.NURSE ---
PT ARRIVED TO FLOOR AT THIS TIME
[2023-08-19] MEDS: 0.9 % SODIUM CHLORIDE 1000ML 1,000 ML 75 ML IV ×2 (00:54→14:55)
[2023-08-19 01:13] LABS: Troponin I < 0.01 ng/ml (0.00-0.034)
[2023-08-19 04:47] LABS: Troponin I < 0.01 ng/ml (0.00-0.034)
--- NOTE | 2023-08-19 05:27 | PC.NURSE ---
Patient arrived to [facility] from emergency department. Family with patient states patient has been having an increase in weakness and has been lethargic for the last couple of days, family also states she has had a decrease in appetite. Patient was admitted after diagnostics revealed sepsis. Patient admitted for medical management. Patient wears a cpap at home and family has brought machine with them. Patient has been able to answer questions appropriately with yes/no. Alert to name and situation. Per family report patient ambulates with walker at home, typically with stand by assist but today has needed max assist with minimal help from patient. Patient uses bathroom but has episodes of incontinent of bowel and bladder. Wears glasses at home, has upper dentures, and is hard of hearing (will not wear her hearing aides). Patients lungs are clear but diminished, bowel sounds active X 4. +1 pitting edema to BLE. Patient and family was oriented to room and [facility] protocols. No questions at this time. Plan of care continues.
[2023-08-19 07:45] LABS: Basophils # 0.1 K/mm3 (0-0.2); Basophils % 0.6 % (0.1-2.0); Eosinophils # 0.2 K/mm3 (0.0-0.4); Eosinophils % 1.7 % (0.1-12.0); Hematocrit 35.1 % (37.0-47.0); Lymphocytes # 1.9 K/mm3 (0.7-4.5); Lymphocytes % 17.6 % (10-50); Mean Corpuscular HGB Conc 31.5 g/dL (31.8-35.4); Mean Corpuscular Hemoglobin 29.5 pg (27.0-31.2); Mean Corpuscular Volume 93.7 fl (81-99); Mean Platelet Volume 8.4 fl (7.4-10.4); Monocytes # 0.7 K/mm3 (0.1-1.0); Monocytes % 6.5 % (1.7-9.3); Neutrophils # 7.8 K/mm3 (1.8-7.8); Neutrophils % 73.5 % (37.0-80.0); Platelet Count 340 K/mm3 (142-424); Red Blood Count 3.74 M/mm3 (4.20-5.40); White Blood Count 10.5 K/mm3 (4.8-10.8)
[2023-08-19 07:48] LABS: Alanine Aminotransferase 29 U/L (12-78); Albumin Level 3.1 g/dl (3.5-5.0); Albumin/Globulin Ratio 1.1 (1.1-1.8); Alkaline Phosphatase 61 U/L (38-126); Anion Gap 4.7 mEq/L (5-15); Aspartate Amino Transferase 39 U/L (14-36); Bilirubin,Total 0.3 mg/dl (0.2-1.3); Blood Urea Nitrogen 15 mg/dl (7-17); Calcium 8.5 mg/dl (8.4-10.2); Carbon Dioxide 28 mmol/L (22.0-30.0); Chloride 107 mmol/L (98-107); Creatinine Clearance Estimated 38 mL/min (50-200); Estimated Glomerular Filt Rate 118 ml/min (>60); GFR (African American) 143 ML/MIN (>60); Globulin 2.8 g/dL (1.3-3.2); Glucose 137 mg/dl (74-100); Lipase 16 U/L (23-300); Potassium 3.7 mmoL/L (3.5-5.1); Sodium 136 mmol/L (136-145); Total Protein,Serum 5.9 g/dl (6.3-8.2)
--- NOTE | 2023-08-19 08:14 | P.CONPHA_ITS ---
Pharmacy Consult Date: 08/19/23 Time: 08:14 Referring provider: DR. REINOSO Reason for Consult:: VANCOMYCIN DOSING Allergies Allergy/AdvReac Type Severity Reaction Status Date / Time No Known Allergies Allergy Verified 08/18/23 22:17 Home Medications Medication Instructions Recorded Confirmed Type alendronate 70 mg tablet 70 mg PO DAILY 08/18/23 08/18/23 History cholecalciferol (vitamin D3) 125 125 mcg PO DAILY 08/18/23 08/18/23 History mcg (5,000 unit) tablet (Vitamin D3) duloxetine 60 mg capsule,delayed 60 mg PO DAILY 08/18/23 08/18/23 History release fluticasone fur. 100 mcg-umeclid 1 inh inhalation HS 08/18/23 08/18/23 History 62.5 mcg-vilant 25 mcg inhalat.powder (Trelegy Ellipta) furosemide 40 mg tablet 40 mg PO DAILY 08/18/23 08/18/23 History gabapentin 800 mg tablet 800 mg PO TID 08/18/23 08/18/23 History metformin 500 mg tablet 500 mg PO BID 08/18/23 08/18/23 History multivitamin 1 tab PO DAILY 08/18/23 08/18/23 History ondansetron 4 mg disintegrating 4 mg PO NEEDED PRN Nausea 08/18/23 08/18/23 History tablet oxybutynin chloride 5 mg tablet 5 mg PO BID 08/18/23 08/18/23 History pantoprazole 40 mg tablet,delayed 40 mg PO DAILY 08/18/23 08/18/23 History release potassium chloride 10 mEq 10 meq PO DAILY 08/18/23 08/18/23 History tablet,extended release warfarin 5 mg tablet 5 mg PO DAILY 08/18/23 08/18/23 History New Prescriptions to Start Prescriptions: Height: 1.63 m Weight: 113.398 kg Laboratory Results:: Laboratory Results - last 24 hr 08/18/23 21:56: SARS-CoV-2 (PCR) Not detected, Influenza A Untype (PCR) Not detected, Influenza Type B (PCR) Not detected 08/18/23 22:03: Urine Color Yellow, Urine Appearance Clear, Urine pH 5.5, Ur Specific [place] 1.025, Urine Protein Trace, Urine Glucose (UA) Negative, Urine Ketones Negative, Urine Blood Negative, Urine Nitrate Negative, Urine Bilirubin Negative, Urine Urobilinogen 0.2, Ur Leukocyte Esterase Negative, Urine RBC Occasional, Urine WBC None, Ur Squamous Epith Cells Occasional, Urine Bacteria Trace 08/18/23 22:08: WBC 15.3 H, RBC 4.23, Hgb 12.1 L, Hct 39.1, MCV 92.5, MCH 28.7, MCHC 31.0 L, RDW 17.0, Plt Count 366, MPV 8.0, Neut % (Auto) 79.6, Lymph % (Auto) 15.0, [place] % (Auto) 4.5, Eos % (Auto) 0.2, Baso % (Auto) 0.7, Neut # (Auto) 12.2 H, Lymph # (Auto) 2.3, [place] # (Auto) 0.7, Eos # (Auto) 0.0, Baso # (Auto) 0.1, Total Counted 100, Neutrophils % (Manual) 75, Lymphocytes % (Manual) 24, Monocytes % (Manual) 1 L, Platelet Estimate Normal, RBC Morphology Normal, PT 15.1 H, INR 1.43 H, Sodium 137, Potassium 4.1, Chloride 102, Carbon Dioxide 32 H, Anion Gap 7.1, BUN 16, Creatinine 0.80, Estimated Creat Clear 38, Estimated GFR 69, Est GFR ( Amer) 83, Glucose 161 H, Lactate 2.0, Calcium 9.2, Magnesium 1.9, Total Bilirubin 0.3, AST 44 H, ALT 42, Alkaline Phosphatase 81, Troponin I < 0.01, Total Protein 6.8, Albumin 3.7, Globulin 3.1, Albumin/Globulin Ratio 1.2 08/19/23 00:25: Lactate 1.5, Troponin I < 0.01 08/19/23 04:12: Troponin I < 0.01 08/19/23 07:00: Sodium 136, Potassium 3.7, Chloride 107, Carbon Dioxide 28, Anion Gap 4.7 L, BUN 15, Creatinine 0.50 L D, Estimated Creat Clear 38, Estimated GFR 118, Est GFR ( Amer) 143 D, Glucose 137 H, Calcium 8.5, Magnesium 2.0, Total Bilirubin 0.3, AST 39 H, ALT 29 D, Alkaline Phosphatase 61, Total Protein 5.9 L, Albumin 3.1 L D, Globulin 2.8, Albumin/Globulin Ratio 1.1, Lipase 16 L Medical History: Medical History (Updated 08/19/23 @ 07:01 by Osman Virk APRN) Cataract History of cataract Diabetes mellitus, type 2 History of gastroesophageal reflux (GERD) Osteoarthritis Alzheimer disease History of COVID-19 Sleep apnea Urinary tract infection Urinary incontinence Edema Cervical cancer Skin cancer Asthma Assessment and Plan Assessment and plan all Dx Assessment and Plan for all problems:: Pharmacokinetic dosing service Objective: Patient: Floor: Age: 82 yo Serum creatinine: 1 mg/dL Height: 64.2 Inches Weight (kg): 114 Assessment: IBW (kg): 55.16 Dosing wt(kg): 114 Estimated Creatinine clearance (ml/min): 38.4 CRCL method: Cockcroft and Gault using ibw(default). Drug selected: Vancomycin Loading dose (mg): 0 Vd (liters): 96.9 (factor used: 0.85 L/kg) Bryan (hr-1): 0.036 Half life (hrs): 19.25 Recommended dose: 2000 mg Interval: 24 hrs Infusion time (hrs): 2.0 Predicted peak (mcg/mL): 34.4 Predicted trough (mcg/mL): 15.58 Total body weight is being used for vancomycin dosing. Recommendations: Give Vancomycin 2000 mg q 24 hrs with an expected Cpeak of 34.4 mcg/ml and an expected Ctrough of 15.58 mcg/ml ----Vanco only - ignore for aminoglycosides----- CLvanco= 3.49 L/hr AUC 0-24 /SHANE Data: SHANE 0.5 mcg/mL: AUC/SHANE: 1146.1 SHANE 1.0 mcg/mL: AUC/SHANE: 573.1 --------- SHANE 1.5 mcg/mL: AUC/SHANE: 382.0 SHANE 2.0 mcg/mL: AUC/SHANE: 286.5
[2023-08-19 08:58] LABS: Hemoglobin A1C 8.1 % (4.0-6.0)
[2023-08-19] MEDS: PIPERACILLIN/TAZO 4.5 GM in 0.9 % SODIUM CHLORIDE 100 ML IV ×3 (09:09→23:19)
[2023-08-19] MEDS: FLUTICASONE/UMECLIDIN/VILANTER 100/62.5/25MCG INHALER 1 PUFF IH (09:09)
[2023-08-19] MEDS: OXYBUTYNIN 5MG TAB 5 MG PO ×2 (09:10→21:02)
[2023-08-19] MEDS: DULOXETINE 30MG CAPSULE.DR 60 MG PO (09:10)
[2023-08-19] MEDS: METFORMIN 500MG TABLET 500 MG PO ×2 (09:10→16:36)
[2023-08-19] MEDS: PANTOPRAZOLE 40MG TABLET 40 MG PO (09:10)
[2023-08-19] MEDS: FUROSEMIDE 40 MG TABLET PO (09:10)
[2023-08-19] MEDS: ENOXAPARIN 40MG/0.4ML SYRINGE 40 MG SQ ×2 (09:10→21:02)
[2023-08-19] MEDS: GABAPENTIN 800MG TABLET 800 MG PO ×3 (09:10→21:02)
[2023-08-19] MEDS: POTASSIUM CHLORIDE 10MEQ TABLET.ER 10 MEQ PO (09:11)
[2023-08-19] MEDS: WARFARIN 5MG TABLET 5 MG PO (11:09)
[2023-08-19 11:25] LABS: POC Glucose,Bedside 196 (70-110)
[2023-08-19] MEDS: MULTIVITAMIN TABLET 1 EACH PO (16:36)
[2023-08-19 16:55] LABS: POC Glucose,Bedside 150 (70-110)
--- NOTE | 2023-08-19 17:40 | PC.NURSE ---
PT IS ALERT TO SELF AND PART OF BIRTHDAY. IS ABLE TO RESPOND WITH SHORT SIMPLE RESPONSES AND HEAD SHAKES. TOLERATING RA WELL. PT HAS HAD NO NEEDS OR C/O THUS FAR THIS SHIFT. FULL BED BATH AND LINEN CHANGE PROVIDED, BOTTOM LOOKS GOOD DURING THIS ASSESSMENT. PURE WICK IN PLACE DRAINING DARK YELLOW URINE. NO BM THUS FAR. PT DOES HAS SLIGHT EDEMA NOTED TO BLE WITH SOME DISCOLORATION PRESENT, FAMILY SAYS THIS IS WHAT HER LEGS USUALLY LOOK LIKE. FAMILY HAS REMAINED AT BEDSIDE. PT HAS GREAT APPETITE AND FAMILY STATES SHE SEEMS MORE HERSELF T/O THE DAY. VSS.
[2023-08-19] MEDS: VANCOMYCIN HCL 2,000 MG in 0.9 % SODIUM CHLORIDE 250 ML 125 MG IV (21:02)
[2023-08-20 04:00] VITALS: BP 130/69; PULSE 84; RESP 18; TEMP 36.2; O2SAT 92; BMI 40.3
--- NOTE | 2023-08-20 04:53 | PC.NURSE ---
Pt is alert to self and situation only. Son remains at bedside. Pt used bedside commode at beginning of shift with 2x assist, pt had xlarge BM and voided. Purewick placed on patient while sleeping. Personal CPAP wore throughout the night. Pt has had no complaints of pain. Son states pt was more to baseline tonight based on when they first arrived to hospital. Call light in reach.
[2023-08-20] MEDS: FLUTICASONE/UMECLIDIN/VILANTER 100/62.5/25MCG INHALER 1 PUFF IH (06:23)
[2023-08-20] MEDS: PIPERACILLIN/TAZO 4.5 GM in 0.9 % SODIUM CHLORIDE 100 ML IV (06:32)
[2023-08-20] MEDS: METFORMIN 500MG TABLET 500 MG PO (06:33)
[2023-08-20 06:42] LABS: POC Glucose,Bedside 135 (70-110)
[2023-08-20 06:55] VITALS: TEMP 36.9
[2023-08-20 07:05] LABS: Basophils # 0.1 K/mm3 (0-0.2); Basophils % 0.8 % (0.1-2.0); Eosinophils # 0.5 K/mm3 (0.0-0.4); Hematocrit 35.2 % (37.0-47.0); Hemoglobin 11.2 g/dL (12.2-16.2); Lymphocytes # 2.7 K/mm3 (0.7-4.5); Mean Corpuscular HGB Conc 31.7 g/dL (31.8-35.4); Mean Corpuscular Hemoglobin 29.4 pg (27.0-31.2); Mean Corpuscular Volume 92.8 fl (81-99); Mean Platelet Volume 7.9 fl (7.4-10.4); Monocytes # 0.6 K/mm3 (0.1-1.0); Monocytes % 6.7 % (1.7-9.3); Neutrophils # 5.7 K/mm3 (1.8-7.8); Neutrophils % 59.5 % (37.0-80.0); Platelet Count 328 K/mm3 (142-424); Red Blood Count 3.79 M/mm3 (4.20-5.40); Red Cell Distribution Width 16.9 % (11.5-17.5); White Blood Count 9.6 K/mm3 (4.8-10.8)
[2023-08-20 07:15] LABS: Alanine Aminotransferase 36 U/L (12-78); Albumin/Globulin Ratio 1.1 (1.1-1.8); Alkaline Phosphatase 79 U/L (38-126); Anion Gap 5.7 mEq/L (5-15); Aspartate Amino Transferase 45 U/L (14-36); Bilirubin,Total 0.3 mg/dl (0.2-1.3); Blood Urea Nitrogen 12 mg/dl (7-17); Calcium 8.5 mg/dl (8.4-10.2); Carbon Dioxide 28 mmol/L (22.0-30.0); Chloride 108 mmol/L (98-107); Creatinine Clearance Estimated 75 mL/min (50-200); Estimated Glomerular Filt Rate 80 ml/min (>60); GFR (African American) 97 ML/MIN (>60); Globulin 2.8 g/dL (1.3-3.2); Glucose 147 mg/dl (74-100); Potassium 3.7 mmoL/L (3.5-5.1); Sodium 138 mmol/L (136-145); Total Protein,Serum 5.8 g/dl (6.3-8.2)
[2023-08-20 07:21] LABS: INR 1.32 (0.9-1.1)
[2023-08-20 07:35] LABS: Lipase 21 U/L (23-300)
[2023-08-20 08:00] VITALS: BP 125/68; PULSE 89; RESP 18; TEMP 37; O2SAT 92
[2023-08-20 08:44] LABS: Adenovirus,PCR Not Detected (NotDetected); Coronavirus 19, PCR Not Detected (NotDetected); Coronavirus 229E Not Detected (NotDetected); Coronavirus NL63 Not Detected (NotDetected); Coronavirus OC43 Not Detected (NotDetected); Coronovirus HKU1,PCR Not Detected (NotDetected); Human Metapneumovirus Not Detected (NotDetected); Influenza A, PCR Not Detected (NotDetected); Influenza AH1, 2009 Not Detected (NotDetected); Influenza AH1, PCR Not Detected (NotDetected); Influenza AH3,PCR Not Detected (NotDetected); Influenza B, PCR Not Detected (NotDetected); Parainfluenza 1, PCR Not Detected (NotDetected); Parainfluenza 2, PCR Not Detected (NotDetected); Parainfluenza 3, PCR Not Detected (NotDetected); Parainfluenza 4, PCR Not Detected (NotDetected); Respiratory Syncytial Virus Not Detected (NotDetected); Rhinovirus/Enterovirus Not Detected (NotDetected)
[2023-08-20] MEDS: ENOXAPARIN 40MG/0.4ML SYRINGE 40 MG SQ (08:45)
[2023-08-20] MEDS: OXYBUTYNIN 5MG TAB 5 MG PO (08:46)
[2023-08-20] MEDS: GABAPENTIN 800MG TABLET 800 MG PO ×2 (08:46→12:17)
[2023-08-20] MEDS: FUROSEMIDE 40 MG TABLET PO (08:46)
[2023-08-20] MEDS: DULOXETINE 30MG CAPSULE.DR 60 MG PO (08:47)
[2023-08-20] MEDS: POTASSIUM CHLORIDE 10MEQ TABLET.ER 10 MEQ PO (08:47)
[2023-08-20] MEDS: PANTOPRAZOLE 40MG TABLET 40 MG PO (08:47)
--- NOTE | 2023-08-20 09:51 | HMH.OTEV ---
OT Inpatient Evaluation Rehab OT IP Evaluation Start: 08/19/23 06:58 Freq: ONCE Status: Active Protocol: Document 08/20/23 09:44 [facility] (Rec: 08/20/23 09:51 [facility] [id number]) Rehab OT IP Assessment Subjective History Pt oriented x 3 on arrival. Pt agreeable to engage in therapy evaluation. Family present and supportive during evaluation. Pt admitted on due to weakness, sepsis, and decreased mobility. 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 History is largely obtained by family at bedside. Patient is typically a 1 person assist with a walker. However over the last 24 hours has developed fever, decreased p.o . intake, decreased urine output, decreased conversation from baseline. They went to outside hospital yesterday where they were told that their workup was reassuring and they were discharged home. This morning patient was a 4 person max assist and is unable to ambulate on her own. She is not complaining of abdominal pain or chest pain. Due to persistent symptoms they present here for continued evaluation given her oral aversion and fever. Admitted for further work up and treatment Subjective I need some help. Prior to being in the hospital , pt lived with family. Pt was dependent upon family for completion of all IADLs. Pt required assistance with ADLs such as dressing and bathing. Pt also required assistance with functional transfers. Family reports normally she is able to transfer short distances with rolling walker; in community they use a wheelchair. Objective Patient Orientation Person,Birthday Right Upper Extremity Gross ROM WFL Left Upper Extremity Gross ROM WFL Bed Mobility bed mobility-scooting,bed mobility - supine/sit Assist Level Minimal x 1 (25% assist) Transfer Training Sit/Stand Transfer Assist Level Contact Guard/Hand Hold Lower Body Dressing Ability Maximum Assistance Rehab OT IP prob,goals,plan Problems Date of Evaluation: 08/20/23 OT IP Problems Bed Mobility,Transfers,Balance ,Self care,Safety Rehab Potential Rehab Potential Good Equipment Needs Assistive Devices Rolling / Wheeled Walker Plan OT intervention Plan Bed Mobility,Transfers,Balance ,Self care,Safety,Therapeutic Exercise OT Plan Frequency Daily Duration LOS Discharge Goals Bed Mobility Ability Standby Assistance Sit to Stand Chair Transfer Ability Contact Guard/Hand Hold Chair Transfer Ability Contact Guard/Hand Hold Chair Transfer Technique Sit to/from Ambulatory Chair Transfer Assistive Devices Rolling Walker Feeding Ability Assist with Tray Set Up Lower Body Dressing Ability Moderate Assistance Upper Body Dressing Ability Contact Guard Bathing Ability Moderate Assistance Performing Toilet Hygiene Ability Moderate Assistance Overall Commode/Toilet Transfer Ability Contact Guard Commode/Toilet Transfer Technique Sit to/from Ambulatory Commode/Toilet Transfer Assistive Grab Bars Devices Oral Care Assist Moderate Assistance Decrease in Endurance Yes Discharge Plan OT Discharge Plan Pt will continue to be seen for OT services while at [facility]. Pt appears to be close to her baseline with ADLs and functional transfers. Pt can return home with family assistance and HH OT evaluation as needed. However , if family is unable to provide enough assistance, pt would benefit from short term rehab at [facility]. Continued skilled therapy is important in order for patient to improve strength, safety, endurance, ADL independence, and functional transfers to reach PLOF. Eval Complexity Eval Charge Codes 86580 - Moderate Complexity PHYSICIAN CERTIFICATION: I certify the specified therapy services for Steffi Lockett are required, authorized, and reviewed every 30 days.
--- NOTE | 2023-08-20 10:07 | HMH.PTEV ---
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 History is largely obtained by family at bedside. Patient is typically a 1 person assist with a walker. However over the last 24 hours has developed fever, decreased p.o . intake, decreased urine output, decreased conversation from baseline. They went to outside hospital yesterday where they were told that their workup was reassuring and they were discharged home. This morning patient was a 4 person max assist and is unable to ambulate on her own. She is not complaining of abdominal pain or chest pain. Due to persistent symptoms they present here for continued evaluation given her oral aversion and fever. Admitted for further work up and treatment Subjective Subjective Patient is agreeable to PT. She is oriented to person and is able to say she is in a hospital, but unable to say where. She does not know the month and year. Family in the room helps to convey patient's subjective history. Reports that she lives in a house with multiple family members, where someone is always available for assistance. She uses a front-wheeled walker for ambulation in the home and uses a standard wheelchair when in the community and for drs appointments. Reports that she does require assistance for dressing and bathing. Rehab PT IP Eval Objective Appearance Patient Behavior Appropriate,Patient Baseline Patient Orientation Person,Place Difficulty following instructions mild Speech Pattern Clear Ambulation Patient Able to Ambulate Yes Ambulation Observation IP General Gait Pattern Observation Shuffling Step Ambulation Distance (feet) 5 Ambulation Assistive Device Rolling Walker Ambulation Ability Minimal x 2 (25% assist) Balance Ability to Arise Able, uses arms to help Sitting Balance Steady, safe Standing Balance Steady, wide stance Dynamic Sitting Balance Ability Good Dynamic Standing Balance Ability Good Transfers Bed Transfer Ability Minimal x 2 (25% assist) Sit to Stand Bed Transfer Ability Minimal x 2 (25% assist) Rehab PT IP prob,goals,plan Problems Date of Evaluation: 08/20/23 PT IP Problems Bed Mobility,Transfers,Gait, Balance,Self care Rehab Potential Rehab Potential Good Equipment Needs Assistive Devices Rolling / Wheeled Walker Plan PT Intervention Plan Bed Mobility,Transfers,Gait, Balance,Self care,Safety, Therapeutic Exercise PT Plan Frequency Daily Duration LOS Discharge Goals Bed Transfer Ability Independent Sit to Stand Chair Transfer Ability Independent Ambulation Assistive Device Rolling Walker Ambulation Distance (feet) 50 Discharge Plan PT Discharge Plan Patient presents for initial evaluation. She presents below baseline in mobility and below her prior level of function. She demonsrated some slight impulsivity and mild difficulty following directions, to which her son reported is normal for her. Skilled PT is indicated for this patient to promote a return to her prior level of function and to prevent further injuries. The patient may be most appropriate for discharge to home with home health at this time, when deemed medically stable for discharge. Eval Complexity Eval Charge Codes 76210 - High Complexity PHYSICIAN CERTIFICATION: I certify the specified therapy services for Steffi Lockett are required, authorized, and reviewed every 30 days.
--- NOTE | 2023-08-20 10:16 | SW/DCPLANNER ---
Addendum entered by Ashly Mayorga 08/21/23 09:31: [facility] stated that services will begin this week for this patient. PT will be delayed due to staff in this area. Original Note: I spoke w/ this patient regarding plans once medically stable for discharge. PT evaluated patient and recommended home health services. Patient stated that she has used [facility] in the past and prefers to use this agency again. I will set patient up w/ home health services once medically stable for discharge. Discharge date is unknown at this time. I will continue to follow up.
[2023-08-20 11:09] LABS: POC Glucose,Bedside 148 (70-110)
[2023-08-20] MEDS: WARFARIN 5MG TABLET 5 MG PO (12:17)
--- NOTE | 2023-08-20 15:05 | EXP.DC.SUM ---
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 History is largely obtained by family at bedside. Patient is typically a 1 person assist with a walker. However over the last 24 hours has developed fever, decreased p.o. intake, decreased urine output, decreased conversation from baseline. They went to outside hospital yesterday where they were told that their workup was reassuring and they were discharged home. This morning patient was a 4 person max assist and is unable to ambulate on her own. She is not complaining of abdominal pain or chest pain. Due to persistent symptoms they present here for continued evaluation given her oral aversion and fever. 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 on arrival patient found to have leukocytosis, wish is trending up from previous visit to another near hospital. CT of abdomen concerning for cholelithiasis, and pancreatic cyst, CXR negative. UA is clear. Culture pending. Discussed with ED for admission. Gerneralized weakness. Decreased functional ability To rule out sepsis and bacteremia: Started on vancomycin and Zosyn Blood culture pending Urinary culture pending Monitor lab Watch for electrolyte imbalance -Cholelithiasis without obstruction Pancreatic cyst: Patient referred previous history of stomach upset with nausea Continue monitor Obtain lipase History of diabetes. Alzheimer's Condition review resume home medication Unable to care for herself PT OT consulted for recommendation Patient on warfarin. Protonix for GI protection Patient has a living will. DNR/DNI Plan discussed with extensively with family. Exam Data for Last 24 hours Vital signs and Labs for Last 24 Hours: Temp Pulse Resp BP Pulse Ox O2 Del Method FiO2 98.6 F 89 18 125/68 92 L Room Air 30 08/20/23 08:00 08/20/23 08:00 08/20/23 08:00 08/20/23 08:00 08/20/23 08:00 08/20/23 15:00 08/19/23 00:11 Laboratory Results - last 24 hr 08/19/23 16:37: POC Glucose 150 H 08/19/23 21:56: Chlamy pneumoniae PCR TNP, Adenovirus (PCR) Not detected, B. pertussis DNA (PCR) TNP, Coronavirus OC43 (PCR) Not detected, Coronavirus HKU1 (PCR) Not detected, Coronavirus 229E (PCR) Not detected, SARS-CoV-2 (PCR) Not detected, Coronavirus NL63 (PCR) Not detected, Human Metapneumovir PCR Not detected, Influenza A (H1) PCR Not detected, Influ A (H1N1/09) PCR Not detected, Influenza A (H3) PCR Not detected, Influenza Type A (PCR) Not detected, Influenza Type B (PCR) Not detected, M. pneumoniae (PCR) TNP, Parainfluenza 1 (PCR) Not detected, Parainfluenza 2 (PCR) Not detected, Parainfluenza 3 (PCR) Not detected, Parainfluenza 4 (PCR) Not detected, RSV (PCR) Not detected, Entero/Rhino (PCR) Not detected 08/20/23 06:31: POC Glucose 135 H 08/20/23 06:35: WBC 9.6, RBC 3.79 L, Hgb 11.2 L, Hct 35.2 L, MCV 92.8, MCH 29.4, MCHC 31.7 L, RDW 16.9, Plt Count 328, MPV 7.9, Neut % (Auto) 59.5, Lymph % (Auto) 28.0, [place] % (Auto) 6.7, Eos % (Auto) 5.0, Baso % (Auto) 0.8, Neut # (Auto) 5.7, Lymph # (Auto) 2.7, [place] # (Auto) 0.6, Eos # (Auto) 0.5 H, Baso # (Auto) 0.1, PT 14.0 H, INR 1.32 H, Sodium 138, Potassium 3.7, Chloride 108 H, Carbon Dioxide 28, Anion Gap 5.7, BUN 12, Creatinine 0.70 D, Estimated Creat Clear 75, Estimated GFR 80, Est GFR ( Amer) 97 D, Glucose 147 H, Hemoglobin A1c 8.0 H, Calcium 8.5, Total Bilirubin 0.3, AST 45 H, ALT 36, Alkaline Phosphatase 79, Total Protein 5.8 L, Albumin 3.0 L, Globulin 2.8, Albumin/Globulin Ratio 1.1, Lipase 21 L 08/20/23 11:00: POC Glucose 148 H I & O for Last 24 hours: Intake & Output 08/17/23 08/18/23 08/19/23 08/20/23 23:59 23:59 23:59 23:59 Intake Total 630 / 630 2794 / 2794 Output Total 0 / 0 500 / 500 Balance 630 / 630 2294 / 2294 Weight 113.398 kg 113.398 kg 107.139 kg Results Data Completed and Pending Labs on day of discharge: Labs from last 24 hours 08/20/23 08/20/23 08/20/23 11:00 06:35 06:31 WBC 9.6 RBC 3.79 L Hgb 11.2 L Hct 35.2 L MCV 92.8 MCH 29.4 MCHC 31.7 L RDW 16.9 Plt Count 328 MPV 7.9 Neut % (Auto) 59.5 Lymph % (Auto) 28.0 [place] % (Auto) 6.7 Eos % (Auto) 5.0 Baso % (Auto) 0.8 Neut # (Auto) 5.7 Lymph # (Auto) 2.7 [place] # (Auto) 0.6 Eos # (Auto) 0.5 H Baso # (Auto) 0.1 PT 14.0 H INR 1.32 H Sodium 138 Potassium 3.7 Chloride 108 H Carbon Dioxide 28 Anion Gap 5.7 BUN 12 Creatinine 0.70 D Estimated Creat Clear 75 Estimated GFR 80 Est GFR ( Amer) 97 D Glucose 147 H POC Glucose 148 H 135 H Hemoglobin A1c 8.0 H Calcium 8.5 Total Bilirubin 0.3 AST 45 H ALT 36 Alkaline Phosphatase 79 Total Protein 5.8 L Albumin 3.0 L Globulin 2.8 Albumin/Globulin Ratio 1.1 Lipase 21 L Chlamy pneumoniae PCR Adenovirus (PCR) B. pertussis DNA (PCR) Coronavirus OC43 (PCR) Coronavirus HKU1 (PCR) Coronavirus 229E (PCR) SARS-CoV-2 (PCR) Coronavirus NL63 (PCR) Human Metapneumovir PCR Influenza A (H1) PCR Influ A (H1N1/09) PCR Influenza A (H3) PCR Influenza Type A (PCR) Influenza Type B (PCR) M. pneumoniae (PCR) Parainfluenza 1 (PCR) Parainfluenza 2 (PCR) Parainfluenza 3 (PCR) Parainfluenza 4 (PCR) RSV (PCR) Entero/Rhino (PCR) 08/19/23 08/19/23 21:56 16:37 WBC RBC Hgb Hct MCV MCH MCHC RDW Plt Count MPV Neut % (Auto) Lymph % (Auto) [place] % (Auto) Eos % (Auto) Baso % (Auto) Neut # (Auto) Lymph # (Auto) [place] # (Auto) Eos # (Auto) Baso # (Auto) PT INR Sodium Potassium Chloride Carbon Dioxide Anion Gap BUN Creatinine Estimated Creat Clear Estimated GFR Est GFR ( Amer) Glucose POC Glucose 150 H Hemoglobin A1c Calcium Total Bilirubin AST ALT Alkaline Phosphatase Total Protein Albumin Globulin Albumin/Globulin Ratio Lipase Chlamy pneumoniae PCR TNP Adenovirus (PCR) Not detected B. pertussis DNA (PCR) TNP Coronavirus OC43 (PCR) Not detected Coronavirus HKU1 (PCR) Not detected Coronavirus 229E (PCR) Not detected SARS-CoV-2 (PCR) Not detected Coronavirus NL63 (PCR) Not detected Human Metapneumovir PCR Not detected Influenza A (H1) PCR Not detected Influ A (H1N1/09) PCR Not detected Influenza A (H3) PCR Not detected Influenza Type A (PCR) Not detected Influenza Type B (PCR) Not detected M. pneumoniae (PCR) TNP Parainfluenza 1 (PCR) Not detected Parainfluenza 2 (PCR) Not detected Parainfluenza 3 (PCR) Not detected Parainfluenza 4 (PCR) Not detected RSV (PCR) Not detected Entero/Rhino (PCR) Not detected DS: Diagnosis Discharge Diagnosis (1) Decreased functional mobility: Status: Acute Code(s): R26.89 - Other abnormalities of gait and mobility (2) Decreased oral intake: Status: Acute Code(s): R63.8 - Other symptoms and signs concerning food and fluid intake (3) Leukocytosis: Status: Acute Code(s): D72.829 - Elevated white blood cell count, unspecified Qualifiers: Leukocytosis type: unspecified Qualified Code(s): D72.829 - Elevated white blood cell count, unspecified (4) Cholelithiases: Status: Acute Code(s): K80.20 - Calculus of gallbladder without cholecystitis without obstruction Qualifiers: Cholelithiasis location: gallbladder Cholecystitis presence: without cholecystitis Biliary obstruction: without biliary obstruction Qualified Code(s): K80.20 - Calculus of gallbladder without cholecystitis without obstruction (5) Pancreatic cyst: Status: Acute Code(s): K86.2 - Cyst of pancreas (6) Diabetes mellitus, type 2: Status: Acute Code(s): E11.9 - Type 2 diabetes mellitus without complications Qualifiers: Diabetes mellitus group home insulin use: without adjunct faculty for medical terminology use Diabetes mellitus complication status: with other specified complication Qualified Code(s): E11.69 - Type 2 diabetes mellitus with other specified complication (7) Alzheimer disease: Status: Acute Code(s): G30.9 - Alzheimer's disease, unspecified; F02.80 - Dementia in other diseases classified elsewhere, unspecified severity, without behavioral disturbance, psychotic disturbance, mood disturbance, and anxiety (8) Unable to care for self: Status: Acute Code(s): Z78.9 - Other specified health status Meds Home Medications and Allergies Home Medications Medication Instructions Recorded Confirmed Type alendronate 70 mg tablet 70 mg PO WEEKLY OSTEOPOROSIS 08/18/23 08/19/23 History cholecalciferol (vitamin D3) 125 125 mcg PO DAILY Supplement 08/18/23 08/19/23 History mcg (5,000 unit) tablet (Vitamin D3) duloxetine 60 mg capsule,delayed 60 mg PO HS Depression 08/18/23 08/19/23 History release fluticasone fur. 100 mcg-umeclid 1 inh inhalation HS Copd 08/18/23 08/19/23 History 62.5 mcg-vilant 25 mcg inhalat.powder (Trelegy Ellipta) furosemide 40 mg tablet 40 mg PO DAILY Edema 08/18/23 08/19/23 History gabapentin 800 mg tablet 800 mg PO TID NEUROPATHY 08/18/23 08/19/23 History metformin 500 mg tablet 500 mg PO BID Diabetes 08/18/23 08/19/23 History multivitamin 1 tab PO DAILY Supplement 08/18/23 08/19/23 History ondansetron 4 mg disintegrating 4 mg PO Q6HP PRN Nausea 08/18/23 08/19/23 History tablet oxybutynin chloride 5 mg tablet 5 mg PO BID BLADDER 08/18/23 08/19/23 History pantoprazole 40 mg tablet,delayed 40 mg PO DAILY GERD 08/18/23 08/19/23 History release potassium chloride 10 mEq 10 meq PO DAILY Supplement 08/18/23 08/19/23 History tablet,extended release warfarin 5 mg tablet 5 mg PO DAILY Blood Thinner 08/18/23 08/19/23 History levofloxacin 750 mg tablet 750 mg PO DAILY 5 days #5 tabs 08/20/23 Rx New Prescriptions to Start Prescriptions: levofloxacin Goran Muñoz Allergies Allergy/AdvReac Type Severity Reaction Status Date / Time No Known Allergies Allergy Verified 08/18/23 22:17 Discharge Plan Disposition Patient Disposition: Home Health Service Condition: Fair Discharge Order Discharge Orders: Discharge Order (Routine); Ordered 08/20/23 Ordered By: Goran Muñoz Follow up Plan Follow up with: Eyad Pop MD [Primary Care Provider] - Enter time for follow up Prescriptions/Medication Reconciliation: New levofloxacin 750 mg tablet 750 mg PO DAILY 5 Days Qty: 5 0RF Continued furosemide 40 mg tablet 40 mg PO DAILY metformin 500 mg tablet 500 mg PO BID Patient Comments: TAKE ONE (1) TABLET BY MOUTH TWICE DAILY alendronate 70 mg tablet 70 mg PO WEEKLY Patient Comments: TAKE ONE (1) TABLET BY MOUTH EVERY WEEK WITH FULL GLASS OF WATER 30 MINUTES BEFORE FIRST DAILY FOOD, BEVERAGE, OR MEDICINE potassium chloride 10 mEq tablet extended release 10 meq PO DAILY Patient Comments: TAKE ONE (1) TABLET BY MOUTH EVERY DAY gabapentin 800 mg tablet 800 mg PO TID Patient Comments: TAKE ONE (1) TABLET BY MOUTH THREE (3) TIMES A DAY. pantoprazole 40 mg tablet,delayed release (DR/EC) 40 mg PO DAILY Patient Comments: TAKE ONE (1) TABLET BY MOUTH EVERY DAY warfarin 5 mg tablet 5 mg PO DAILY oxybutynin chloride 5 mg tablet 5 mg PO BID Patient Comments: TAKE ONE (1) TABLET BY MOUTH TWICE DAILY ondansetron 4 mg tablet,disintegrating 4 mg PO Q6HP PRN (Reason: Nausea) duloxetine 60 mg capsule,delayed release(DR/EC) 60 mg PO HS Patient Comments: TAKE 1 CAPSULE BY MOUTH EVERY NIGHT multivitamin Tablet 1 tab PO DAILY cholecalciferol (vitamin D3) [Vitamin D3] 125 mcg (5,000 unit) Tablet 125 mcg PO DAILY Trelegy Ellipta 100-62.5-25 mcg blister with device 1 inh INHALATION HS Problem Reconciliation Problems Reviewed?: Yes Patient Discharge Instructions ACTIVITY: Continue current activity DIET: continue same diet Patient Instructions: Coumadin Vitamin K/ Diet Providers Primary Care Provider: Eyad Pop Admit Provider: Brice Aguero Attending Provider: Brice Aguero
--- NOTE | 2023-08-20 15:17 | P.DS_ITS ---
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 History is largely obtained by family at bedside. Patient is typically a 1 person assist with a walker. However over the last 24 hours has developed fever, decreased p.o. intake, decreased urine output, decreased conversation from baseline. They went to outside hospital yesterday where they were told that their workup was reassuring and they were discharged home. This morning patient was a 4 person max assist and is unable to ambulate on her own. She is not complaining of abdominal pain or chest pain. Due to persistent symptoms they present here for continued evaluation given her oral aversion and fever. Admitted for further work up and treatment Hospital Course Hospital Course Hospital Course: Transition to Levaquin to complete 7 days of antibiotics. Has follow-up with her Coumadin clinic later this week on to monitor INR. INR 1.3 on day of discharge. Resume home warfarin dosage. Total time spent on discharge 38 minutes in counseling, documentation, chart review, and direct care with patient. Exam Data for Last 24 hours Vital signs and Labs for Last 24 Hours: Temp Pulse Resp BP Pulse Ox O2 Del Method FiO2 98.6 F 89 18 125/68 92 L Room Air 30 08/20/23 08:00 08/20/23 08:00 08/20/23 08:00 08/20/23 08:00 08/20/23 08:00 08/20/23 15:00 08/19/23 00:11 Laboratory Results - last 24 hr 08/19/23 16:37: POC Glucose 150 H 08/19/23 21:56: Chlamy pneumoniae PCR TNP, Adenovirus (PCR) Not detected, B. pertussis DNA (PCR) TNP, Coronavirus OC43 (PCR) Not detected, Coronavirus HKU1 (PCR) Not detected, Coronavirus 229E (PCR) Not detected, SARS-CoV-2 (PCR) Not detected, Coronavirus NL63 (PCR) Not detected, Human Metapneumovir PCR Not detected, Influenza A (H1) PCR Not detected, Influ A (H1N1/09) PCR Not detected, Influenza A (H3) PCR Not detected, Influenza Type A (PCR) Not detected, Influenza Type B (PCR) Not detected, M. pneumoniae (PCR) TNP, Parainfluenza 1 (PCR) Not detected, Parainfluenza 2 (PCR) Not detected, Parainfluenza 3 (PCR) Not detected, Parainfluenza 4 (PCR) Not detected, RSV (PCR) Not detected, Entero/Rhino (PCR) Not detected 08/20/23 06:31: POC Glucose 135 H 08/20/23 06:35: WBC 9.6, RBC 3.79 L, Hgb 11.2 L, Hct 35.2 L, MCV 92.8, MCH 29.4, MCHC 31.7 L, RDW 16.9, Plt Count 328, MPV 7.9, Neut % (Auto) 59.5, Lymph % (Auto) 28.0, [place] % (Auto) 6.7, Eos % (Auto) 5.0, Baso % (Auto) 0.8, Neut # (Auto) 5.7, Lymph # (Auto) 2.7, [place] # (Auto) 0.6, Eos # (Auto) 0.5 H, Baso # (Auto) 0.1, PT 14.0 H, INR 1.32 H, Sodium 138, Potassium 3.7, Chloride 108 H, Carbon Dioxide 28, Anion Gap 5.7, BUN 12, Creatinine 0.70 D, Estimated Creat Clear 75, Estimated GFR 80, Est GFR ( Amer) 97 D, Glucose 147 H, Hemoglobin A1c 8.0 H, Calcium 8.5, Total Bilirubin 0.3, AST 45 H, ALT 36, Alkaline Phosphatase 79, Total Protein 5.8 L, Albumin 3.0 L, Globulin 2.8, Albumin/Globulin Ratio 1.1, Lipase 21 L 08/20/23 11:00: POC Glucose 148 H I & O for Last 24 hours: Intake & Output 08/17/23 08/18/23 08/19/23 08/20/23 23:59 23:59 23:59 23:59 Intake Total 630 / 630 2794 / 2794 Output Total 0 / 0 500 / 500 Balance 630 / 630 2294 / 2294 Weight 113.398 kg 113.398 kg 107.139 kg Constitutional Constitutional: no acute distress, morbidly obese, chronically ill appearing and cooperative *Routine HEENT Exam Head: Present normocephalic Eye: Present EOMI and PERRL ENT: Present mucous membranes moist *Routine Neck Exam Neck: Present supple; Absent lymphadenopathy *Routine Respiratory Exam Respiratory: Present CTA bilaterally; Absent rhonchi, wheezes or crackles *Routine Cardiovascular Exam Cardiovascular: Present RRR *Routine Abdominal Exam Abdominal: Present soft and normoactive bowel sounds; Absent tenderness *Routine Rectal Exam Patient deferred: visual exam *Routine Exam Patient deferred: external exam *Routine Extremities Exam Extremities: Absent cyanosis, clubbing or edema *Routine Skin Exam Skin: Present intact and warm; Absent rash *Routine Neurological Exam Neurological: Present alert and moving all extremities; Absent altered mental status Results Data Completed and Pending Labs on day of discharge: Labs from last 24 hours 08/20/23 08/20/23 08/20/23 11:00 06:35 06:31 WBC 9.6 RBC 3.79 L Hgb 11.2 L Hct 35.2 L MCV 92.8 MCH 29.4 MCHC 31.7 L RDW 16.9 Plt Count 328 MPV 7.9 Neut % (Auto) 59.5 Lymph % (Auto) 28.0 [place] % (Auto) 6.7 Eos % (Auto) 5.0 Baso % (Auto) 0.8 Neut # (Auto) 5.7 Lymph # (Auto) 2.7 [place] # (Auto) 0.6 Eos # (Auto) 0.5 H Baso # (Auto) 0.1 PT 14.0 H INR 1.32 H Sodium 138 Potassium 3.7 Chloride 108 H Carbon Dioxide 28 Anion Gap 5.7 BUN 12 Creatinine 0.70 D Estimated Creat Clear 75 Estimated GFR 80 Est GFR ( Amer) 97 D Glucose 147 H POC Glucose 148 H 135 H Hemoglobin A1c 8.0 H Calcium 8.5 Total Bilirubin 0.3 AST 45 H ALT 36 Alkaline Phosphatase 79 Total Protein 5.8 L Albumin 3.0 L Globulin 2.8 Albumin/Globulin Ratio 1.1 Lipase 21 L Chlamy pneumoniae PCR Adenovirus (PCR) B. pertussis DNA (PCR) Coronavirus OC43 (PCR) Coronavirus HKU1 (PCR) Coronavirus 229E (PCR) SARS-CoV-2 (PCR) Coronavirus NL63 (PCR) Human Metapneumovir PCR Influenza A (H1) PCR Influ A (H1N1/09) PCR Influenza A (H3) PCR Influenza Type A (PCR) Influenza Type B (PCR) M. pneumoniae (PCR) Parainfluenza 1 (PCR) Parainfluenza 2 (PCR) Parainfluenza 3 (PCR) Parainfluenza 4 (PCR) RSV (PCR) Entero/Rhino (PCR) 08/19/23 08/19/23 21:56 16:37 WBC RBC Hgb Hct MCV MCH MCHC RDW Plt Count MPV Neut % (Auto) Lymph % (Auto) [place] % (Auto) Eos % (Auto) Baso % (Auto) Neut # (Auto) Lymph # (Auto) [place] # (Auto) Eos # (Auto) Baso # (Auto) PT INR Sodium Potassium Chloride Carbon Dioxide Anion Gap BUN Creatinine Estimated Creat Clear Estimated GFR Est GFR ( Amer) Glucose POC Glucose 150 H Hemoglobin A1c Calcium Total Bilirubin AST ALT Alkaline Phosphatase Total Protein Albumin Globulin Albumin/Globulin Ratio Lipase Chlamy pneumoniae PCR TNP Adenovirus (PCR) Not detected B. pertussis DNA (PCR) TNP Coronavirus OC43 (PCR) Not detected Coronavirus HKU1 (PCR) Not detected Coronavirus 229E (PCR) Not detected SARS-CoV-2 (PCR) Not detected Coronavirus NL63 (PCR) Not detected Human Metapneumovir PCR Not detected Influenza A (H1) PCR Not detected Influ A (H1N1/09) PCR Not detected Influenza A (H3) PCR Not detected Influenza Type A (PCR) Not detected Influenza Type B (PCR) Not detected M. pneumoniae (PCR) TNP Parainfluenza 1 (PCR) Not detected Parainfluenza 2 (PCR) Not detected Parainfluenza 3 (PCR) Not detected Parainfluenza 4 (PCR) Not detected RSV (PCR) Not detected Entero/Rhino (PCR) Not detected DS: Diagnosis Discharge Diagnosis (1) Decreased functional mobility: Status: Acute Code(s): R26.89 - Other abnormalities of gait and mobility (2) Decreased oral intake: Status: Acute Code(s): R63.8 - Other symptoms and signs concerning food and fluid intake (3) Leukocytosis: Status: Acute Code(s): D72.829 - Elevated white blood cell count, unspecified Qualifiers: Leukocytosis type: unspecified Qualified Code(s): D72.829 - Elevated white blood cell count, unspecified (4) Cholelithiases: Status: Acute Code(s): K80.20 - Calculus of gallbladder without cholecystitis without obstruction Qualifiers: Biliary obstruction: without biliary obstruction Cholecystitis presence: without cholecystitis Cholelithiasis location: gallbladder Qualified Code(s): K80.20 - Calculus of gallbladder without cholecystitis without obstruction (5) Pancreatic cyst: Status: Acute Code(s): K86.2 - Cyst of pancreas (6) Diabetes mellitus, type 2: Status: Acute Code(s): E11.9 - Type 2 diabetes mellitus without complications Qualifiers: Diabetes mellitus complication status: with other specified complication Diabetes mellitus fdc insulin use: without intermediate designer use Qualified Code(s): E11.69 - Type 2 diabetes mellitus with other specified complication (7) Alzheimer disease: Status: Acute Code(s): G30.9 - Alzheimer's disease, unspecified; F02.80 - Dementia in other diseases classified elsewhere, unspecified severity, without behavioral disturbance, psychotic disturbance, mood disturbance, and anxiety (8) Unable to care for self: Status: Acute Code(s): Z78.9 - Other specified health status Meds Home Medications and Allergies Home Medications Medication Instructions Recorded Confirmed Type alendronate 70 mg tablet 70 mg PO WEEKLY OSTEOPOROSIS 08/18/23 08/19/23 History cholecalciferol (vitamin D3) 125 125 mcg PO DAILY Supplement 08/18/23 08/19/23 History mcg (5,000 unit) tablet (Vitamin D3) duloxetine 60 mg capsule,delayed 60 mg PO HS Depression 08/18/23 08/19/23 History release fluticasone fur. 100 mcg-umeclid 1 inh inhalation HS Copd 08/18/23 08/19/23 History 62.5 mcg-vilant 25 mcg inhalat.powder (Trelegy Ellipta) furosemide 40 mg tablet 40 mg PO DAILY Edema 08/18/23 08/19/23 History gabapentin 800 mg tablet 800 mg PO TID NEUROPATHY 08/18/23 08/19/23 History metformin 500 mg tablet 500 mg PO BID Diabetes 08/18/23 08/19/23 History multivitamin 1 tab PO DAILY Supplement 08/18/23 08/19/23 History ondansetron 4 mg disintegrating 4 mg PO Q6HP PRN Nausea 08/18/23 08/19/23 History tablet oxybutynin chloride 5 mg tablet 5 mg PO BID BLADDER 08/18/23 08/19/23 History pantoprazole 40 mg tablet,delayed 40 mg PO DAILY GERD 08/18/23 08/19/23 History release potassium chloride 10 mEq 10 meq PO DAILY Supplement 08/18/23 08/19/23 History tablet,extended release warfarin 5 mg tablet 5 mg PO DAILY Blood Thinner 08/18/23 08/19/23 History levofloxacin 750 mg tablet 750 mg PO DAILY 5 days #5 tabs 08/20/23 Rx New Prescriptions to Start Prescriptions: levofloxacin Goran Muñoz Allergies Allergy/AdvReac Type Severity Reaction Status Date / Time No Known Allergies Allergy Verified 08/18/23 22:17 Discharge Plan Disposition Patient Disposition: Home Health Service Condition: Fair Discharge Order Discharge Orders: Discharge Order (Routine); Ordered 08/20/23 Ordered By: Goran Muñoz Follow up Plan Follow up with: Eyad Pop MD [Primary Care Provider] - 08/23/23 4:00 pm Prescriptions/Medication Reconciliation: New levofloxacin 750 mg tablet 750 mg PO DAILY 5 Days Qty: 5 0RF Continued furosemide 40 mg tablet 40 mg PO DAILY metformin 500 mg tablet 500 mg PO BID Patient Comments: TAKE ONE (1) TABLET BY MOUTH TWICE DAILY alendronate 70 mg tablet 70 mg PO WEEKLY Patient Comments: TAKE ONE (1) TABLET BY MOUTH EVERY WEEK WITH FULL GLASS OF WATER 30 MINUTES BEFORE FIRST DAILY FOOD, BEVERAGE, OR MEDICINE potassium chloride 10 mEq tablet extended release 10 meq PO DAILY Patient Comments: TAKE ONE (1) TABLET BY MOUTH EVERY DAY gabapentin 800 mg tablet 800 mg PO TID Patient Comments: TAKE ONE (1) TABLET BY MOUTH THREE (3) TIMES A DAY. pantoprazole 40 mg tablet,delayed release (DR/EC) 40 mg PO DAILY Patient Comments: TAKE ONE (1) TABLET BY MOUTH EVERY DAY warfarin 5 mg tablet 5 mg PO DAILY oxybutynin chloride 5 mg tablet 5 mg PO BID Patient Comments: TAKE ONE (1) TABLET BY MOUTH TWICE DAILY ondansetron 4 mg tablet,disintegrating 4 mg PO Q6HP PRN (Reason: Nausea) duloxetine 60 mg capsule,delayed release(DR/EC) 60 mg PO HS Patient Comments: TAKE 1 CAPSULE BY MOUTH EVERY NIGHT multivitamin Tablet 1 tab PO DAILY cholecalciferol (vitamin D3) [Vitamin D3] 125 mcg (5,000 unit) Tablet 125 mcg PO DAILY Trelegy Ellipta 100-62.5-25 mcg blister with device 1 inh INHALATION HS Problem Reconciliation Problems Reviewed?: Yes Patient Discharge Instructions ACTIVITY: Continue current activity DIET: continue same diet Patient Instructions: Sepsis, Coumadin Vitamin K/ Diet Providers Primary Care Provider: Eyad Pop Admit Provider: Brice Aguero Attending Provider: Brice Aguero
[2023-08-20] MEDS: levoFLOXacin 750 MG TABLET PO (15:24)
--- NOTE | 2023-08-20 15:33 | HMH.PHAINT1 ---
Pharmacy Intervention Comments: Discharge medication counseling provided to patient and family memeber. Discussed one new medication: Levofloxacin with its indication and possible side effects. [facility] [place]. Patient and family member verbalized understanding with no further questions.
--- NOTE | 2023-08-21 15:38 | CARE MANAGER ---
Called and spoke to patient's son regarding recent discharge. He stated that patient has started new medication. He was aware of scheduled f/u appts and had no questions/concerns at time of call.
== END 2023-08-20 15:46 | disposition home health service (06) ==
LOC: ER 08-19 00:05 → 2ND 08-19 00:53
PROVIDERS: Internal Medicine Adolescent Medicine; Nurse Practitioner Family; Admitting Provider Internal Medicine; Emergency Provider Emergency Medicine; PCP Family Medicine; Visit Provider Internal Medicine
DX: R26.89 Other abnormalities of gait and mobility (principal); R63.8 Other symptoms and signs concerning food and fluid intake; D72.829 Elevated white blood cell count, unspecified; K80.20 Calculus of gallbladder without cholecystitis without obstruction; K86.2 Cyst of pancreas; E11.69 Type 2 diabetes mellitus with other specified complication; G30.9 Alzheimer's disease, unspecified; F02.80 Dementia in other diseases classified elsewhere, unspecified severity, without behavioral disturbance, psychotic disturbance, mood disturbance, and anxiety; Z78.9 Other specified health status; Z79.01 Long term (current) use of anticoagulants; Z79.84 Long term (current) use of oral hypoglycemic drugs; Z79.899 Other long term (current) drug therapy; Z86.16 Personal history of COVID-19; Z63.8 Other specified problems related to primary support group; Z60.8 Other problems related to social environment; Z59.41 Food insecurity; Z72.4 Inappropriate diet and eating habits
CPT/HCPCS: 36415; 70450; 71045; 74177; 80053; 81001; 82962; 83036; 83605; 83690; 83735; 84484; 85007; 85025; 85610; 87040; 87632; 87635; 87636; 93005; 94640; 97163; 97166; 97530; 99285; G0378; J0131; J0696; J2543; J3370; Q9967